=== PATIENT | female | born 1985 | race American Indian/Alaskan Native ===

== ENCOUNTER 2016-12-11 20:50 | Emergency (ER) | payer OTHER ==
[2016-12-11 23:31] LABS: Basophils % (Auto) 1.1 % (0.0-1.8); Mean Corpuscular HGB Conc 29 % (30-34); Mean Corpuscular Volume 72 fl (79-97); Platelet Count 368 K/mm3 (140-440); Red Blood Count 3.99 M/mm3 (3.65-5.03); White Blood Count 14.1 K/mm3 (4.5-11.0)
[2016-12-11 23:42] LABS: Hematocrit 28.7 % (30.3-42.9); Hemoglobin 8.3 gm/dl (10.1-14.3); Mean Corpuscular Hemoglobin 21 pg (28-32); Red Cell Distribution Width 21.4 % (13.2-15.2)
[2016-12-12 00:08] LABS: Alanine Aminotransferase 11 units/L (7-56); Albumin 4.6 g/dL (3.9-5); Albumin/Globulin Ratio 1.3 %; Alkaline Phosphatase 46 units/L (35-129); Anion Gap 19 mmol/L; BUN/Creatinine Ratio 16.66; Bilirubin,Total 1.1 mg/dL (0.1-1.2); Blood Urea Nitrogen 10 mg/dL (7-17); Calcium 9.3 mg/dL (8.4-10.2); Carbon Dioxide 22 mmol/L (22-30); Chloride 98.7 mmol/L (98-107); Glucose 92 mg/dL (65-100); Lipase 41 units/L (13-60); Potassium 4.5 mmol/L (3.6-5.0); Sodium 135 mmol/L (137-145); Total Protein 8.2 g/dL (6.3-8.2)
[2016-12-12 00:37] LABS: Bacteria,Urine 2+ /HPF (Negative); Bilirubin,Urine NEG (Negative); Blood,Urine NEG (Negative); Ketones,Urine NEG (Negative); Leukocyte Esterase,Urine TR (Negative); Mucus,Urine 3+ /HPF; Nitrite,Urine NEG (Negative)
--- NOTE | 2016-12-12 07:45 | Emergency Department Report ---
ED General Adult HPI - General Chief complaint: Abdominal Pain Stated complaint: ABD PAIN Time Seen by Provider: 12/12/16 07:34 Source: patient, RN notes reviewed, old records reviewed Mode of arrival: Ambulatory Limitations: No Limitations - History of Present Illness Initial comments: This is a 31-year-old female. She is previously unknown to me. Has a past medical history of symptomatic anemia. The patient presents to the ER complaining of lightheadedness, dizziness, sensation that her blood counts are low. She also thinks that she has a urinary tract infection. She describes increased frequency, and and a smell to her urine. There is no dysuria or hematuria. Patient is sexually active with one male partner, denies a history of gonorrhea/chlamydia. She currently has no pain at this time. no describe exacerbating or relieving factors. Symptoms have been present for approximately one month. -: Gradual Consistency: intermittent Improves with: none Worsens with: none Associated Symptoms: denies: confusion, chest pain, cough, diaphoresis, fever/ chills, headaches, loss of appetite, nausea/vomiting, shortness of breath, syncope, weakness - Related Data Previous Rx's Medication Instructions Recorded Last Taken Type Ferrous Sulfate [Feosol 325 MG tab] 325 mg PO BID #60 tablet 01/21/15 Unknown Rx Multivitamin [Multi Vitamin Daily] 1 each PO DAILY #30 tablet 01/21/15 Unknown Rx medroxyPROGESTERone ACETATE 10 mg PO QDAY #8 tablet 01/21/15 Unknown Rx [Provera] predniSONE [Deltasone] 20 mg PO TID #12 tab 09/15/15 Unknown Rx Ferrous Sulfate [Feosol 325 MG tab] 325 mg PO QDAY #30 tablet 12/12/16 Unknown Rx Nitrofurantoin [place]/M-Cryst 100 mg PO Q12HR #14 capsule 12/12/16 Unknown Rx [Macrobid CAP] Allergies Allergy/AdvReac Type Severity Reaction Status Date / Time No Known Allergies Allergy Unverified 01/20/15 01:28 ED Review of Systems ROS: Stated complaint: ABD PAIN Other details as noted in HPI Constitutional: denies: fever Eyes: denies: eye discharge ENT: denies: epistaxis Respiratory: denies: cough Cardiovascular: denies: chest pain Gastrointestinal: denies: nausea Genitourinary: as per HPI, frequency Musculoskeletal: denies: back pain Skin: denies: lesions Neurological: denies: weakness Psychiatric: denies: anxiety ED Past Medical Hx - Past Medical History Previous Medical History?: No Hx Hypertension: No Hx Heart Attack/AMI: No Hx Congestive Heart Failure: No Hx Diabetes: No Hx Deep Vein Thrombosis: No Hx Pulmonary Embolism: No Hx Liver Disease: No Hx Renal Disease: No Hx Sickle Cell Disease: No Hx Arthritis: No Hx Seizures: No Hx Kidney Stones: No Hx Asthma: No Hx COPD: No Hx Tuberculosis: No Hx Dementia: No Hx HIV: No Additional medical history: Anemia - Surgical History Hx Coronary Stent: No Hx Open Heart Surgery: No Hx Pacemaker: No Hx Internal Defibrillator: No Hx Cholecystectomy: No Hx Appendectomy: No Hx Breast Surgery: No - Social History Smoking Status: Never Smoker Substance Use Type: None - Medications Home Medications: Home Medications Medication Instructions Recorded Confirmed Last Taken Type Ferrous Sulfate [Feosol 325 MG tab] 325 mg PO BID #60 tablet 01/21/15 Unknown Rx Multivitamin [Multi Vitamin Daily] 1 each PO DAILY #30 tablet 01/21/15 Unknown Rx medroxyPROGESTERone ACETATE 10 mg PO QDAY #8 tablet 01/21/15 Unknown Rx [Provera] predniSONE [Deltasone] 20 mg PO TID #12 tab 09/15/15 Unknown Rx Ferrous Sulfate [Feosol 325 MG tab] 325 mg PO QDAY #30 tablet 12/12/16 Unknown Rx Nitrofurantoin [place]/M-Cryst 100 mg PO Q12HR #14 capsule 12/12/16 Unknown Rx [Macrobid CAP] ED Physical Exam - General Limitations: No Limitations General appearance: alert, in no apparent distress - Head Head exam: Present: atraumatic, normocephalic - Eye Eye exam: Present: normal appearance, EOMI. Absent: nystagmus - ENT ENT exam: Present: normal exam, normal orophraynx, mucous membranes moist, TM's normal bilaterally, normal external ear exam - Neck Neck exam: Present: normal inspection, full ROM. Absent: tenderness, meningismus - Respiratory Respiratory exam: Present: normal lung sounds bilaterally. Absent: respiratory distress, wheezes, rales, rhonchi, stridor, chest wall tenderness - Cardiovascular Cardiovascular Exam: Present: regular rate, normal rhythm, normal heart sounds. Absent: bradycardia, tachycardia, irregular rhythm, systolic murmur, diastolic murmur, rubs, gallop - GI/Abdominal GI/Abdominal exam: Present: soft, normal bowel sounds. Absent: distended, tenderness, guarding, rebound, rigid, pulsatile mass - External exam: Present: normal external exam Speculum exam: Present: normal speculum exam Bi-manual exam: Present: normal bi-manual exam, other (gynecologic examination, I am escorted by nurse Key Hernandes). Absent: cervical motion tendernes, adnexal tenderness, adnexal mass, uterine enlargement, uterine tenderness - Extremities Exam Extremities exam: Present: normal inspection, full ROM, normal capillary refill. Absent: tenderness, pedal edema, joint swelling, calf tenderness - Back Exam Back exam: Present: normal inspection, full ROM. Absent: tenderness, CVA tenderness (R), CVA tenderness (L), muscle spasm, paraspinal tenderness, vertebral tenderness - Neurological Exam Neurological exam: Present: alert, oriented X3, normal gait, other (Extraocular movements intact. Tongue midline. No facial droop. Facial sensation intact to light touch in the V1, V2, V3 distribution bilaterally. 5 and 5 strength in 4 extremities.. Sensation is intact to light touch in 4 extremities.). Absent : motor sensory deficit - Psychiatric Psychiatric exam: Present: normal affect, normal mood - Skin Skin exam: Present: warm, dry, intact, normal color. Absent: rash ED Course Vital Signs 12/11/16 12/12/16 12/12/16 21:49 08:45 08:46 Temperature 98 F Pulse Rate 91 H 90 Respiratory 20 16 18 Rate Blood Pressure 113/75 Blood Pressure 114/74 [Left] O2 Sat by Pulse 100 99 100 Oximetry - Reevaluation(s) Reevaluation #1: 12/12/16 08:36 Differential diagnosis: Chronic anemia, urinary tract infection, menstruation, general medical evaluation Assessment and plan: 31-year-old female with multiple complaints. She is afebrile with reassuring vital signs. She has a GCS of 15, NIH score of 0, walks with a steady gait. No pulmonary embolus or DVT risk factors, low risk by well's criteria, perc negative. There is no pass pointing, she has a normal [id number], negative Romberg, no cerebellar signs. Has mild chronic anemia, does not require transfusion at this time. She is able to walk with a steady gait. Has nonspecific urinary symptoms, but urinalysis does not appear to be especially convincing for UTI. We will send cultures. She will be started on iron supplementation. She will be discharged with a prescription for Macrobid, but instructed to not take it unless culture results come back positive, or she develops dysuria, or other irritative urinary symptoms. ED Medical Decision Making - Lab Data Result diagrams: 12/11/16 22:58 12/11/16 22:58 Vital Signs 12/11/16 21:49 Temperature 98 F Pulse Rate 91 H Respiratory 20 Rate Blood Pressure 113/75 O2 Sat by Pulse 100 Oximetry Lab Results 12/11/16 12/11/16 12/12/16 Range/Units 22:58 22:58 00:06 WBC 14.1 H (4.5-11.0) K/mm3 RBC 3.99 (3.65-5.03) M/mm3 Hgb 8.3 L (10.1-14.3) gm/dl Hct 28.7 L (30.3-42.9) % MCV 72 L (79-97) fl MCH 21 L (28-32) pg MCHC 29 L (30-34) % RDW 21.4 H (13.2-15.2) % Plt Count 368 (140-440) K/mm3 Lymph % (Auto) 6.9 L (13.4-35.0) % [place] % (Auto) 4.5 (0.0-7.3) % Eos % (Auto) 0.0 (0.0-4.3) % Baso % (Auto) 1.1 (0.0-1.8) % Lymph # 1.0 L (1.2-5.4) K/mm3 [place] # 0.6 (0.0-0.8) K/mm3 Eos # 0.0 (0.0-0.4) K/mm3 Baso # 0.2 H (0.0-0.1) K/mm3 Seg Neutrophils % 87.5 H (40.0-70.0) % Seg Neutrophils # 12.4 H (1.8-7.7) K/mm3 Sodium 135 L (137-145) mmol/L Potassium 4.5 (3.6-5.0) mmol/L Chloride 98.7 (98-107) mmol/L Carbon Dioxide 22 (22-30) mmol/L Anion Gap 19 mmol/L BUN 10 (7-17) mg/dL Creatinine 0.6 L (0.7-1.2) mg/dL Estimated GFR > 60 ml/min BUN/Creatinine Ratio 16.66 % Glucose 92 (65-100) mg/dL Calcium 9.3 (8.4-10.2) mg/dL Total Bilirubin 1.1 (0.1-1.2) mg/dL AST 16 (5-40) units/L ALT 11 (7-56) units/L Alkaline Phosphatase 46 (35-129) units/L Total Protein 8.2 (6.3-8.2) g/dL Albumin 4.6 (3.9-5) g/dL Albumin/Globulin Ratio 1.3 % Lipase 41 (13-60) units/L Urine Color Yellow (Yellow) Urine Turbidity Slightly-cloudy (Clear) Urine pH 5.0 (5.0-7.0) Ur Specific [place] 1.021 (1.003-1.030) Urine Protein 30 mg/dl (Negative) mg/dL Urine Glucose (UA) Neg (Negative) mg/dL Urine Ketones Neg (Negative) mg/dL Urine Blood Neg (Negative) Urine Nitrite Neg (Negative) Urine Bilirubin Neg (Negative) Urine Urobilinogen 4.0 (<2.0) mg/dL Ur Leukocyte Esterase Tr (Negative) Urine WBC (Auto) 5.0 (0.0-6.0) /HPF Urine RBC (Auto) 4.0 (0.0-6.0) /HPF U Epithel Cells (Auto) 11.0 (0-13.0) /HPF Urine Bacteria (Auto) 2+ (Negative) /HPF Urine Mucus 3+ /HPF Urine HCG, Qual Negative (Negative) - EKG Data -: EKG Interpreted by Ri EKG shows normal: sinus rhythm Rate: normal - EKG Data When compared to previous EKG there are: previous EKG unavailable 12/12/16 08:42 normal sinus, 80 beats per minute, normal intervals, normal axis , unremarkable EKG, not morphologically consistent with STEMI. Critical care attestation.: If time is entered above; I have spent that time in minutes in the direct care of this critically ill patient, excluding procedure time. ED Disposition Clinical Impression: Anemia Disposition: DISCHARGED TO HOME OR SELFCARE Is pt being admited?: No Does the pt Need Aspirin: No Condition: Stable Instructions: Anemia (ED) Additional Instructions: Take the iron sulfate supplementation as directed. This medication may cause constipation, and may also change the color of her bowel movements to black. Cultures were sent today, results will be available in the next 3-5 days. Have a primary care doctor contact the medical records department to obtain culture results. Do not take the Macrobid antibiotic therapy unless he developed painful urination, sensation of incomplete voiding, or you receive a phone call from the laboratory indicating that your urine culture was positive. If he did not receive a phone call within 5 days from the medical records department regarding your urine culture, please call the medical records department to obtain culture results. I have listed numerous names, phone numbers, addresses of local [employer] doctors. I recommend that you follow-up with an [employer] SERVICE CLERK doctor within the next 2-3 weeks. Return to the ER right away with loss of consciousness, chest pain, shortness of breath, intractable nausea or vomiting, inability to tolerate liquid feeds. Prescriptions: Ferrous Sulfate [Feosol 325 MG tab] 325 mg PO QDAY #30 tablet Nitrofurantoin [place]/M-Cryst [Macrobid CAP] 100 mg PO Q12HR #14 capsule Referrals: PRIMARY CARE, [Primary Care Provider] - 3-5 Days FADUMO HERNANDES MD [Staff Physician] - 3-5 Days [facility] [Provider Group] - 3-5 Days [facility] [Provider Group] - 3-5 Days [facility] [Provider Group] - 3-5 Days Forms: Work/School Release Form(ED)
[2016-12-12 08:45] VITALS: BP 114/74
== END 2016-12-12 08:54 | disposition home or self-care (01) ==
LOC: ED 20:50
DX: D64.9 Anemia, unspecified (principal)
CPT/HCPCS: 36415; 80053; 81001; 81025; 83690; 85025; 87086; 87210; 87591; 93005; 93010; 99284

== ENCOUNTER 2017-08-15 17:33 | Outpatient (CLI) | payer OTHER, MEDICAID ==
[2017-08-15 18:03] VITALS: BP 140/52
[2017-08-15] MEDS ORDERED: LACTATED RINGERS 500 ML IV ONE (18:10)
[2017-08-15 19:02] LABS: Bacteria,Urine 1+ /HPF (Negative); Bilirubin,Urine NEG (Negative); Blood,Urine NEG (Negative); Ketones,Urine TR mg/dL (Negative); Leukocyte Esterase,Urine SM (Negative); Mucus,Urine FEW /HPF; Nitrite,Urine NEG (Negative); Protein,Urine <15 mg/dL mg/dL (Negative)
== END 2017-08-15 19:10 | disposition home or self-care (01) ==
LOC: TRG 17:33
PROVIDERS: ATTEND Obstetrics & Gynecology
DX: Z34.93 Encounter for supervision of normal pregnancy, unspecified, third trimester (principal); Z3A.36 36 weeks gestation of pregnancy
CPT/HCPCS: 59025; 81001

== ENCOUNTER 2017-09-17 10:12 | Outpatient (CLI) | payer OTHER, MEDICAID ==
[2017-09-17 11:02] VITALS: BP 134/78
--- NOTE | 2017-09-17 16:02 | Ultrasound Report ---
LIMITED OB ULTRASOUND: Suspect abnormal NST Gestation: [place] Position: Cephalic OTONIEL = 7 cm Heart Rate: 145 BPM Estimated gestational age is 40 weeks 5 days. BIOPHYSICAL PROFILE: 2 - breathing movements 2 - movements 2 - posture and tone 2 - Qualitative amniotic fluid volume 8 - TOTAL SCORE OF POSSIBLE 8 Heart Rate (bpm) 131
== END 2017-09-17 12:15 | disposition home or self-care (01) ==
LOC: TRG 10:12
PROVIDERS: ATTEND Obstetrics & Gynecology
DX: O48.0 Post-term pregnancy (principal); Z3A.40 40 weeks gestation of pregnancy
CPT/HCPCS: 59025; 76815; 76819

== ENCOUNTER 2017-09-20 15:35 | Inpatient (IN) | payer OTHER, MEDICAID ==
[2017-09-20] MEDS ORDERED: LACTATED RINGERS 1,000 ML IV SCH (17:00)
[2017-09-20 17:09] LABS: Basophils % (Auto) 0.6 % (0.0-1.8); Eosinophils % (Auto) 0.8 % (0.0-4.3); Hematocrit 41.5 % (30.3-42.9); Hemoglobin 13.8 gm/dl (10.1-14.3); Mean Corpuscular HGB Conc 33 % (30-34); Mean Corpuscular Hemoglobin 32 pg (28-32); Mean Corpuscular Volume 96 fl (79-97); Platelet Count 102 K/mm3 (140-440); Red Blood Count 4.33 M/mm3 (3.65-5.03); Red Cell Distribution Width 14.9 % (13.2-15.2)
[2017-09-20] MEDS ORDERED: POLYCILLIN/NS 2 GM/100 ML 2 GM/100 ML BAG IV ONE (17:30)
[2017-09-20] MEDS ORDERED: BRETHINE IVP PRN (18:38)
[2017-09-20] MEDS ORDERED: BRETHINE SUB-Q PRN (18:38)
[2017-09-20] MEDS ORDERED: SUBLIMAZE IV PRN (18:38)
[2017-09-20] MEDS ORDERED: MINERAL OIL PO PRN (18:38)
[2017-09-20] MEDS ORDERED: ePHEDrine SULFATE IV PRN (18:38)
[2017-09-20] MEDS ORDERED: XYLOCAINE 2% INFILTRATI ONE (18:38)
--- NOTE | 2017-09-20 18:41 | History and Physical Report ---
History of Present Illness Date of examination: 09/20/17 Date of admission: 09/20/17 15:35 History of present illness: 31 yo 09/12/17 @ 41.1 weeks gestation, presented to office for routine OB visit and received postdate U/S with BPP 6/8 and OTONIEL 2.4cm. Reported LOF since yesterday. Sent for induction. First trimester entry into care at 10 weeks gestation. Positive HSV2 with Valtrex. course complicated by abnl quad with NL APA anatomy screen. Glucose intolerance with NL 3hr GTT. 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 Family/Genetic History: diabetes, hypertension, cancer Social history: no significant social history - Obstetrical History Expected Date of Delivery: 09/12/17 Actual Gestation: 41 Week(s) 1 Day(s) : 1 Para: 0 Medications and Allergies Allergies Allergy/AdvReac Type Severity Reaction Status Date / Time No Known Allergies Allergy Verified 09/17/17 10:30 Home Medications Medication Instructions Recorded Confirmed Last Taken Type Ferrous Sulfate [Feosol 325 MG tab] 325 mg PO BID #60 tablet 01/21/15 09/20/17 Unknown Rx Multivitamin [Multi Vitamin Daily] 1 each PO DAILY #30 tablet 01/21/15 09/20/17 Unknown Rx Docusate Sodium [Colace] 100 mg PO BID PRN 09/20/17 09/20/17 Unknown History Valacyclovir HCl [Valtrex] 500 mg PO DAILY 09/20/17 09/20/17 Unknown History Active Meds: Active Medications Lactated Ringer's (Lactated Ringers) 1,000 mls @ 125 mls/hr IV DIRECT JO ANN Last Admin: 09/20/17 17:31 Dose: 125 mls/hr Ampicillin Sodium (Polycillin/Ns 1 Gm/50 Ml) 1 gm in 50 mls @ 100 mls/hr IV Q4H JO ANN PRN Reason: Protocol Review of Systems All systems: negative - Vital Signs Vital signs: Vital Signs Temp Pulse Resp BP 98.3 F 94 H 18 132/80 09/20/17 16:01 09/20/17 16:01 09/20/17 16:01 09/20/17 16:01 Temp Pulse Resp BP Pulse Ox 98.3 F 82 18 130/78 09/20/17 16:01 09/20/17 18:01 09/20/17 16:01 09/20/17 18:01 - Physical Exam Abdomen: Positive: normal appearance, soft Vulva: both: normal Vagina: Positive: normal moisture Uterus: Positive: normal size, enlarged - Obstetrical FHR: category 1 Uterine Contraction Monitor Mode: External Cervical Dilatation: 0 Cervical Effacement Percentage: 40 station: -3 Uterine Contraction Frequency (min): 0 Uterine Contraction Duration: 0 Uterine Contraction Pattern: Irregular Results Result Diagrams: 09/20/17 16:30 Abnormal lab results 09/20/17 Range/Units 16:30 Plt Count 102 L (140-440) K/mm3 [place] % (Auto) 8.7 H (0.0-7.3) % All other labs normal. Assessment and Plan A: IUP at 41 weeks Oligohydraminos/Prolonged ROM Equivocal BPP Post Dates P: MD consult Pitocin Antibiotics
[2017-09-20] MEDS ORDERED: PITOCin/NS 20 UNIT/1000ML DRIP 20 UNITS/1,000 ML BAG IV SCH (19:00)
[2017-09-20] MEDS ORDERED: PITOCin/NS 30 UNIT/500ML 30 UNITS/500 ML BAG IV SCH (19:00)
[2017-09-20] MEDS: PITOCin/NS 30 UNIT/500ML 30 UNITS/500 ML BAG IV SCH (19:30)
[2017-09-20] MEDS: POLYCILLIN/NS 1 GM/50 ML 1 GM/50 ML BAG IV SCH (23:16)
[2017-09-21] MEDS: POLYCILLIN/NS 1 GM/50 ML 1 GM/50 ML BAG IV SCH ×3 (03:13→12:37)
[2017-09-21] MEDS: LACTATED RINGERS 1,000 ML IV SCH ×2 (04:39→10:29)
--- NOTE | 2017-09-21 09:50 | Progress Note ---
Assessment and Plan A: IUP at 41 weeks Oligohydraminos/Prolonged ROM Equivocal BPP Post Dates P: MD consult Pitocin-Active Steven't Dulcolax for constipation Antibiotics Subjective - Subjective Date of service: 09/21/17 Interval history: 31 yo 09/12/17 @ 41.1 weeks gestation, presented to office for routine OB visit and received postdate U/S with BPP 6/8 and OTONIEL 2.4cm. Reported LOF since yesterday. Sent for induction. First trimester entry into care at 10 weeks gestation. Positive HSV2 with Valtrex. course complicated by abnl quad with NL APA anatomy screen. Glucose intolerance with NL 3hr GTT. Patient reports: new complaints (c/o rectal pressure and need to have BM), movement normal, contractions, no loss of fluid, no vaginal bleeding Objective - Vital Signs Vital Signs: Vital Signs - 12hr 09/20/17 09/20/17 09/20/17 21:52 21:56 21:57 Temperature Pulse Rate 67 81 64 Respiratory Rate Blood Pressure Blood Pressure [Left] O2 Sat by Pulse 98 94 98 Oximetry 09/20/17 09/20/17 09/20/17 22:02 22:07 22:12 Temperature Pulse Rate 66 71 71 Respiratory Rate Blood Pressure 129/77 Blood Pressure [Left] O2 Sat by Pulse 98 97 98 Oximetry 09/20/17 09/20/17 09/20/17 22:17 22:22 22:27 Temperature Pulse Rate 71 71 68 Respiratory Rate Blood Pressure Blood Pressure [Left] O2 Sat by Pulse 98 97 98 Oximetry 09/20/17 09/20/17 09/20/17 22:32 22:37 22:42 Temperature Pulse Rate 69 95 H 75 Respiratory Rate Blood Pressure Blood Pressure [Left] O2 Sat by Pulse 95 96 96 Oximetry 09/20/17 09/20/17 09/20/17 22:47 22:52 22:57 Temperature Pulse Rate 69 67 80 Respiratory Rate Blood Pressure Blood Pressure [Left] O2 Sat by Pulse 97 97 97 Oximetry 09/20/17 09/20/17 09/20/17 23:08 23:13 23:18 Temperature Pulse Rate 82 74 87 Respiratory Rate Blood Pressure Blood Pressure [Left] O2 Sat by Pulse 100 98 97 Oximetry 11/30/17 11/30/17 11/30/17 23:23 23:28 23:33 Temperature Pulse Rate 74 72 71 Respiratory Rate Blood Pressure Blood Pressure [Left] O2 Sat by Pulse 97 97 98 Oximetry 09/20/17 09/20/17 09/20/17 23:38 23:43 23:48 Temperature Pulse Rate 74 84 71 Respiratory Rate Blood Pressure Blood Pressure [Left] O2 Sat by Pulse 98 98 98 Oximetry 09/20/17 09/20/17 09/21/17 23:53 23:58 00:03 Temperature Pulse Rate 78 77 68 Respiratory Rate Blood Pressure Blood Pressure [Left] O2 Sat by Pulse 98 97 97 Oximetry 09/21/17 09/21/17 09/21/17 00:08 00:13 00:18 Temperature Pulse Rate 65 61 65 Respiratory Rate Blood Pressure Blood Pressure [Left] O2 Sat by Pulse 97 97 96 Oximetry 09/21/17 09/21/17 09/21/17 00:23 00:28 00:32 Temperature Pulse Rate 74 64 59 L Respiratory Rate Blood Pressure Blood Pressure [Left] O2 Sat by Pulse 95 96 94 Oximetry 09/21/17 09/21/17 09/21/17 00:33 00:38 00:43 Temperature Pulse Rate 63 63 62 Respiratory Rate Blood Pressure Blood Pressure [Left] O2 Sat by Pulse 97 97 97 Oximetry 09/21/17 09/21/17 09/21/17 00:48 00:53 00:58 Temperature Pulse Rate 62 61 74 Respiratory Rate Blood Pressure Blood Pressure [Left] O2 Sat by Pulse 97 96 97 Oximetry 09/21/17 09/21/17 09/21/17 01:03 01:08 01:13 Temperature Pulse Rate 89 69 72 Respiratory Rate Blood Pressure Blood Pressure [Left] O2 Sat by Pulse 98 95 98 Oximetry 09/21/17 09/21/17 09/21/17 01:18 01:23 01:27 Temperature Pulse Rate 67 70 56 L Respiratory Rate Blood Pressure 125/82 Blood Pressure [Left] O2 Sat by Pulse 96 96 Oximetry 09/21/17 09/21/17 09/21/17 01:28 01:33 01:38 Temperature Pulse Rate 60 67 64 Respiratory Rate Blood Pressure Blood Pressure [Left] O2 Sat by Pulse 97 97 97 Oximetry 09/21/17 09/21/17 09/21/17 01:43 01:48 01:53 Temperature Pulse Rate 65 63 70 Respiratory Rate Blood Pressure Blood Pressure [Left] O2 Sat by Pulse 99 98 97 Oximetry 09/21/17 09/21/17 09/21/17 01:58 02:10 02:14 Temperature 97.5 F L Pulse Rate 69 70 63 Respiratory 13 Rate Blood Pressure 131/77 Blood Pressure 131/77 [Left] O2 Sat by Pulse 97 95 90 Oximetry 09/21/17 09/21/17 09/21/17 02:15 02:20 02:23 Temperature Pulse Rate 68 64 66 Respiratory Rate Blood Pressure Blood Pressure [Left] O2 Sat by Pulse 96 95 94 Oximetry 09/21/17 09/21/17 09/21/17 02:25 02:30 02:33 Temperature Pulse Rate 60 60 74 Respiratory Rate Blood Pressure Blood Pressure [Left] O2 Sat by Pulse 96 96 94 Oximetry 09/21/17 09/21/17 09/21/17 02:35 02:40 02:45 Temperature Pulse Rate 66 65 57 L Respiratory Rate Blood Pressure Blood Pressure [Left] O2 Sat by Pulse 96 96 97 Oximetry 09/21/17 09/21/17 09/21/17 02:50 02:55 03:00 Temperature Pulse Rate 60 61 65 Respiratory Rate Blood Pressure Blood Pressure [Left] O2 Sat by Pulse 97 96 96 Oximetry 09/21/17 09/21/17 09/21/17 03:05 03:07 03:10 Temperature Pulse Rate 60 74 65 Respiratory Rate Blood Pressure Blood Pressure [Left] O2 Sat by Pulse 96 94 96 Oximetry 09/21/17 09/21/17 09/21/17 03:15 03:20 03:22 Temperature Pulse Rate 62 58 L 69 Respiratory Rate Blood Pressure Blood Pressure [Left] O2 Sat by Pulse 96 96 94 Oximetry 09/21/17 09/21/17 09/21/17 03:25 03:26 03:30 Temperature Pulse Rate 66 69 60 Respiratory Rate Blood Pressure 124/73 Blood Pressure [Left] O2 Sat by Pulse 94 97 Oximetry 09/21/17 09/21/17 09/21/17 03:35 03:36 03:40 Temperature Pulse Rate 62 61 60 Respiratory Rate Blood Pressure Blood Pressure [Left] O2 Sat by Pulse 96 94 97 Oximetry 09/21/17 09/21/17 09/21/17 03:45 03:50 03:55 Temperature Pulse Rate 63 59 L 66 Respiratory Rate Blood Pressure Blood Pressure [Left] O2 Sat by Pulse 97 97 96 Oximetry 09/21/17 09/21/17 09/21/17 04:00 04:03 04:05 Temperature Pulse Rate 58 L 87 68 Respiratory Rate Blood Pressure Blood Pressure [Left] O2 Sat by Pulse 96 94 96 Oximetry 09/21/17 09/21/17 09/21/17 04:10 04:15 04:20 Temperature Pulse Rate 60 60 58 L Respiratory Rate Blood Pressure Blood Pressure [Left] O2 Sat by Pulse 97 95 97 Oximetry 09/21/17 09/21/17 09/21/17 04:25 04:34 04:39 Temperature Pulse Rate 56 L 63 Respiratory Rate Blood Pressure Blood Pressure [Left] O2 Sat by Pulse 96 95 98 Oximetry 09/21/17 09/21/17 09/21/17 04:42 04:44 04:49 Temperature 97.6 F Pulse Rate 70 56 L Respiratory Rate Blood Pressure Blood Pressure [Left] O2 Sat by Pulse 97 97 Oximetry 09/21/17 09/21/17 09/21/17 04:54 04:59 05:04 Temperature Pulse Rate 60 57 L 68 Respiratory Rate Blood Pressure Blood Pressure [Left] O2 Sat by Pulse 97 97 97 Oximetry 09/21/17 09/21/17 09/21/17 05:09 05:12 05:14 Temperature Pulse Rate 66 58 L 68 Respiratory Rate Blood Pressure Blood Pressure [Left] O2 Sat by Pulse 97 94 98 Oximetry 09/21/17 09/21/17 09/21/17 05:19 05:22 05:24 Temperature Pulse Rate 60 57 L 60 Respiratory Rate Blood Pressure Blood Pressure [Left] O2 Sat by Pulse 97 94 96 Oximetry 09/21/17 09/21/17 09/21/17 05:26 05:29 05:34 Temperature Pulse Rate 54 L 57 L 57 L Respiratory Rate Blood Pressure 117/58 Blood Pressure [Left] O2 Sat by Pulse 96 97 Oximetry 09/21/17 09/21/17 09/21/17 05:39 05:44 05:49 Temperature Pulse Rate 57 L 60 59 L Respiratory Rate Blood Pressure Blood Pressure [Left] O2 Sat by Pulse 97 97 97 Oximetry 09/21/17 09/21/17 09/21/17 05:54 05:59 06:04 Temperature Pulse Rate 60 59 L 63 Respiratory Rate Blood Pressure Blood Pressure [Left] O2 Sat by Pulse 97 98 97 Oximetry 09/21/17 09/21/17 09/21/17 06:09 06:14 06:23 Temperature Pulse Rate 61 68 70 Respiratory Rate Blood Pressure Blood Pressure [Left] O2 Sat by Pulse 98 97 98 Oximetry 09/21/17 09/21/17 09/21/17 06:28 06:31 06:33 Temperature Pulse Rate 68 61 63 Respiratory Rate Blood Pressure Blood Pressure [Left] O2 Sat by Pulse 95 94 95 Oximetry 09/21/17 09/21/17 09/21/17 06:37 06:38 06:43 Temperature Pulse Rate 68 61 62 Respiratory Rate Blood Pressure Blood Pressure [Left] O2 Sat by Pulse 94 96 95 Oximetry 09/21/17 09/21/17 09/21/17 06:44 06:48 06:53 Temperature Pulse Rate 63 61 62 Respiratory Rate Blood Pressure Blood Pressure [Left] O2 Sat by Pulse 94 95 98 Oximetry 09/21/17 09/21/17 09/21/17 06:58 07:03 07:08 Temperature Pulse Rate 74 59 L 62 Respiratory Rate Blood Pressure Blood Pressure [Left] O2 Sat by Pulse 96 98 97 Oximetry 09/21/17 09/21/17 09/21/17 07:13 07:45 07:55 Temperature 98.1 F Pulse Rate 67 69 Respiratory 16 Rate Blood Pressure 106/66 Blood Pressure [Left] O2 Sat by Pulse 98 Oximetry - Exam Breasts: deferred Abdomen: Present: normal appearance, soft Vulva: both: normal Uterus: Present: normal FHR: category 1 Uterine Contraction Monitor Mode: External Cervical Dilatation: 0.5 Cervical Effacement Percentage: 80 station: -1 Uterine Contraction Frequency (min): 2 Uterine Contraction Pattern: Regular Uterine Tone Measurement Phase: Resting Uterine Contraction Intensity: Mild - Labs Labs: Abnormal Labs 09/20/17 16:30 Plt Count 102 L [place] % (Auto) 8.7 H Laboratory Results - last 24 hr 09/20/17 09/20/17 16:30 16:30 WBC 6.0 RBC 4.33 Hgb 13.8 Hct 41.5 MCV 96 MCH 32 MCHC 33 RDW 14.9 Plt Count 102 L Lymph % (Auto) 25.7 [place] % (Auto) 8.7 H Eos % (Auto) 0.8 Baso % (Auto) 0.6 Lymph # 1.5 [place] # 0.5 Eos # 0.0 Baso # 0.0 Seg Neutrophils % 64.2 Seg Neutrophils # 3.8 Blood Type A POSITIVE Antibody Screen Negative
[2017-09-21] MEDS ORDERED: DULCOLAX PR NR (10:00)
[2017-09-21] MEDS: STADOL IV PRN ×2 (10:27→12:41)
[2017-09-21] MEDS: PITOCin/NS 30 UNIT/500ML 30 UNITS/500 ML BAG IV SCH ×3 (12:04→15:18)
[2017-09-21] MEDS ORDERED: fentaNYL-BUPIV 2 MCG/ML-0.125% 200 MCG/100 ML BAG EPIDURAL ONE (13:35)
--- NOTE | 2017-09-21 14:01 | Anesthesia Consultation ---
Anesthesia Consult and Med Hx Date of service: 09/21/17 - Airway Anesthetic Teeth Evaluation: Good ROM Head & Neck: Adequate Mental/Hyoid Distance: Adequate Mallampati Class: Class II Intubation Access Assessment: Probably Good - Pre-Operative Health Status ASA Pre-Surgery Classification: ASA2 Proposed Anesthetic Plan: Epidural, Spinal - Pulmonary Hx Smoking: No Hx Asthma: No COPD: No Hx Pneumonia: No Hx Sleep Apnea: No - Cardiovascular System Hx Hypertension: No Hx Coronary Artery Disease: No Hx Heart Attack/AMI: No Hx Angina: No Hx Percutaneous Transluminal Coronary Angioplasty (PTCA): No Hx Pacemaker: No Hx Internal Defibrillator: No Hx Valvular Heart Disease: No Hx Heart Murmur: No Hx Peripheral Vascular Disease: No - Central Nervous System Hx Seizures: No CVA: No Hx Psychiatric Problems: No - Gastrointestinal Hx Ulcer: No - Endocrine Hx Renal Disease: No Hx End Stage Renal Disease: No Hx Cirrhosis: No Hx Liver Disease: No Hx Hypothyroidism: No Hx Hyperthyroidism: No - Hematic Hx Anemia: Yes (taking iron daily) Hx Sickle Cell Disease: No - Other Systems Hx Alcohol Use: No Hx Cancer: No
[2017-09-21] MEDS ORDERED: NARCAN 2 MG/2 ML IV PRN (14:02)
[2017-09-21] MEDS ORDERED: ePHEDrine SULFATE IV PRN (14:02)
[2017-09-21] MEDS ORDERED: XYLOCAINE MPF 2% ONE (14:15)
[2017-09-21] MEDS ORDERED: fentaNYL-BUPIV 2 MCG/ML-0.125% 200 MCG/100 ML BAG EPIDURAL SCH (15:00)
[2017-09-21] MEDS ORDERED: CYTOTEC PR ONE (17:23)
[2017-09-21] MEDS ORDERED: CYTOTEC ONE (17:24)
[2017-09-21] MEDS ORDERED: DULCOLAX PR PRN (18:17)
[2017-09-21] MEDS ORDERED: TORADOL IV PRN (18:17)
[2017-09-21] MEDS ORDERED: PHENERGAN PR PRN (18:17)
[2017-09-21] MEDS ORDERED: ZOFRAN IV PRN (18:17)
[2017-09-21] MEDS ORDERED: PHENERGAN PO PRN (18:17)
[2017-09-21] MEDS ORDERED: BENADRYL PO PRN (18:17)
[2017-09-21] MEDS ORDERED: TYLENOL PO PRN (18:17)
[2017-09-21] MEDS ORDERED: NORCO 5/325 PO PRN (18:17)
[2017-09-21] MEDS ORDERED: TUCKS PAD TP PRN (18:17)
--- NOTE | 2017-09-21 18:27 | Procedure Note ---
OB Delivery Note - Delivery Date of Delivery: 09/21/17 Surgeon: RADHA HERNANDES Estimated blood loss: other (700cc) - Vaginal Delivery presentation: vertex Delivery position: OA Intrapartum events: meconium Delivery induction: oxytocin Delivery monitor: external FHT, external uterine Route of delivery: Delivery placenta: spontaneous Delivery cord: 3 umbilical vessels Episiotomy: none Delivery laceration: 2nd degree Delivery repair: vicryl Anesthesia: epidural Delivery comments: Patient was noted to be c/c/e and commenced to pushing and delivered a viable male infant in OA presentation at 1747. The shoulders delivered easily and placed on baby chest. Nasopharynx and orophayrnx suctione. The cord was clamped and cut. The placenta delivered spontaneously intact with three vessel cord at 1750. The weight of male viable infant was 8 pounds 9 oz. Aurvery of perineum revealed a 2nd degree repaired with 2-0 vicryl in normal usual fashion. Excellent hemostasis noted. EBL 700 cc. Pitocin and double pit used to control bleeding. Mother tolerated procedure well and bonding with the baby - A at 1 minute: 8 at 5 minutes: 9 Infant Gender: Male
[2017-09-21] MEDS ORDERED: PITOCin/NS 20 UNIT/1000ML DRIP 20 UNITS/1,000 ML BAG IV SCH (19:00)
[2017-09-21] MEDS ORDERED: SODIUM CHLORIDE FLUSH SYRINGE 10 ML IV NR (19:00)
[2017-09-21] MEDS: MOTRIN PO SCH (20:24)
[2017-09-21] MEDS ORDERED: COLACE PO SCH (22:00)
[2017-09-21] MEDS ORDERED: MILK OF MAGNESIA PO PRN (22:00)
[2017-09-21] MEDS: PERCOCET 5/325 PO PRN (22:37)
[2017-09-22] MEDS: MOTRIN PO SCH ×3 (05:15→18:00)
[2017-09-22 06:05] LABS: Hematocrit 32.9 % (30.3-42.9); Hemoglobin 11.2 gm/dl (10.1-14.3)
[2017-09-22] MEDS: PERCOCET 5/325 PO PRN ×3 (06:32→18:02)
--- NOTE | 2017-09-22 08:13 | Progress Note ---
Assessment and Plan A/P PPD#1 s/p h/h 13.8/41.5--11.2/32.9 bonding with baby breast feeding ambulating and tolerating diet bleeding decreased\ unsure control d/c home tomorrow if continued stable to f/u in 2 weeks to assess repair Subjective - Subjective Date of service: 09/22/17 Principal diagnosis: Patient reports: appetite normal, voiding normally, pain well controlled, flatus , ambulating normally [place]: doing well, nursing well Objective - Vital Signs Latest vital signs: Vital Signs Temp Pulse Resp BP BP Pulse Ox 09/22/17 03:30 98.3 F 82 18 111/62 09/22/17 02:05 98.6 F 73 18 110/63 97 09/21/17 20:38 98.3 F 77 18 128/71 09/21/17 19:23 88 129/63 09/21/17 18:38 84 124/74 09/21/17 18:23 82 116/63 09/21/17 18:08 86 132/73 09/21/17 14:13 62 122/71 09/21/17 13:38 78 92 09/21/17 13:36 77 97 09/21/17 13:31 89 97 09/21/17 13:26 79 94 09/21/17 13:21 83 95 09/21/17 13:18 76 94 09/21/17 13:16 69 95 09/21/17 13:11 70 94 09/21/17 13:10 70 93 09/21/17 13:06 65 96 09/21/17 13:05 71 94 09/21/17 13:01 64 93 09/21/17 12:56 71 94 09/21/17 12:51 63 93 09/21/17 12:50 68 94 09/21/17 12:46 71 96 09/21/17 12:41 62 96 09/21/17 12:36 63 96 09/21/17 12:31 81 95 09/21/17 12:26 83 95 09/21/17 12:21 73 98 09/21/17 12:07 67 98 09/21/17 12:04 74 94 09/21/17 12:02 61 96 09/21/17 11:36 64 133/86 09/21/17 11:23 98.1 F 16 12/01/17 10:57 16 09/21/17 10:33 63 132/81 09/21/17 10:27 16 Intake and Output 09/21/17 09/22/17 09/22/17 23:59 07:59 15:59 Intake Total 240 120 Output Total 800 Balance -560 120 Intake: Oral 240 Intake, Free Water 120 Output: Urine 800 Void 800 Other: Total, Intake Amount 240 Total, Output Amount 800 # Voids Void 1 Estimated Blood Loss 700 - Exam Breasts: Present: normal Cardiovascular: Present: Regular rate, Normal S1 Lungs: Present: Clear to auscultation, Normal air movement Abdomen: Present: normal appearance, soft, normal bowel sounds. Absent: distention, tenderness Vulva: both: normal Uterus: Present: normal, firm, fundal height below umbilicus. Absent: bogginess , tenderness Extremities: Present: normal Deep Tendon Reflex Grade: Normal +2
--- NOTE | 2017-09-22 08:16 | Discharge Summary ---
Providers - Providers Date of Admission: 09/20/17 15:35 Date of discharge: 09/23/17 Attending physician: STANFORD RANGEL Primary care physician: STANFORD RANGEL Hospitalization Reason for admission: induction of labor Delivery: Episiotomy: none Laceration: 2nd degree Incision: normal, dry, intact Other procedures: none complications: none Discharge diagnosis: IUP at term delivered [place] baby: male Condition at discharge: Good Disposition: DC-01 TO HOME OR SELFCARE Plan - Discharge Medications Prescriptions: Ferrous Sulfate [Feosol 325 MG tab] 325 mg PO BID #60 tablet HYDROcodone/APAP 5-325 [[place] 5/325] 1 each PO Q6HR PRN #30 tablet PRN Reason: Pain Ibuprofen [Motrin] 600 mg PO Q8H PRN #30 tablet PRN Reason: Pain - Provider Discharge Summary Activity: routine, no sex for 6 weeks, no strenuous exercise Diet: routine Instructions: routine Additional instructions: [] Smoking cessation referral if applicable(refer to patient education folder for contact #) [] Refer to [facility]'s [facility] Booklet Call your doctor immediately for: * Fever > 100.5 * Heavy vaginal bleeding ( >1 pad per hour) * Severe persistent headache * Shortness of breath * Reddened, hot, painful area to leg or breast * Drainage or odor from incision. * Keep incision clean and dry at all times and follow doctor's instructions regarding bathing/showering - Follow up plan Follow up: STANFORD RANGEL MD [Primary Care Provider] - 14 Days
[2017-09-22] MEDS ORDERED: MILK OF MAGNESIA PO PRN (08:31)
[2017-09-22] MEDS ORDERED: PRENATAL VITAMIN PO SCH (10:00)
[2017-09-22] MEDS ORDERED: BOOSTRIX IM ONE (12:00)
[2017-09-22] MEDS ORDERED: M-M-R II VACCINE SUB-Q ONE (12:00)
[2017-09-23] MEDS: PERCOCET 5/325 PO PRN (01:08)
[2017-09-23] MEDS: MOTRIN PO SCH ×2 (01:10→09:22)
[2017-09-23 05:08] VITALS: BP 119/73
== END 2017-09-23 10:23 | disposition home or self-care (01) | DRG 775 ==
LOC: LD 15:35 → OB 09-21 20:05
PROVIDERS: ADMIT Obstetrics & Gynecology; ATTEND Obstetrics & Gynecology
PROC: 10E0XZZ Delivery of Products of Conception, External Approach (ICD-10-PCS; principal; 2017-09-21)
PROC: 3E0R3BZ Introduction of Anesthetic Agent into Spinal Canal, Percutaneous Approach (ICD-10-PCS; 2017-09-21)
PROC: 00HU33Z Insertion of Infusion Device into Spinal Canal, Percutaneous Approach (ICD-10-PCS; 2017-09-21)
PROC: 3E033VJ Introduction of Other Hormone into Peripheral Vein, Percutaneous Approach (ICD-10-PCS; 2017-09-21)
PROC: 0KQM0ZZ Repair Perineum Muscle, Open Approach (ICD-10-PCS; 2017-09-21)
DX: O48.0 Post-term pregnancy (principal); O41.03X0 Oligohydramnios, third trimester, not applicable or unspecified; Z3A.41 41 weeks gestation of pregnancy; Z37.0 Single live birth; O77.0 Labor and delivery complicated by meconium in amniotic fluid; O70.1 Second degree perineal laceration during delivery
CPT/HCPCS: 36415; 85014; 85018; 85025; 86592; 86850; 86900; 86901; 88307; 99211; G0463; J0290; J0595; J2590; J7120

== ENCOUNTER 2018-06-10 10:59 | Emergency (ER) | payer MEDICAID, OTHER ==
[2018-06-10] MEDS ORDERED: REGLAN IV ONE (13:02)
[2018-06-10] MEDS ORDERED: NACL 0.9% 1000 ML 1,000 ML IV ONE (13:02)
--- NOTE | 2018-06-10 13:42 | Emergency Department Report ---
ED HPI - General Chief complaint: Abdominal Pain Stated complaint: 10WKS /STOMACH PAIN Time Seen by Provider: 06/10/18 12:53 Source: patient Mode of arrival: Ambulatory Limitations: No Limitations - History of Present Illness Initial comments: This is a 32-year-old female nontoxic, well nourished in appearance, no acute signs of distress presents to the ED with c/o of pelvic pain and nausea/ vomiting. Patient denies any vaginal bleeding. Patient stated she is about 10 weeks . Patient denies following up with a OBGYN. Patient denies any radiation of pain. Patient described pain as cramping sensations. Patient denies any upper abdominal pain. Patient denies any vaginal discharge or foul odor. Patient denies any chest pain, shortness of breathe, fever, chills, headache, stiff neck, numbness, tingling. Patient denies any urinary symptoms. Patient denies any allergies or PMH. Patient denies any allergies or PMH. MD Complaint: abdominal pain -: week(s) (1) Location: pelvis Radiation: none Severity: mild Severity scale (0 -10): 8 Quality: cramping Consistency: intermittent Improves with: none Worsens with: none Associated symptoms: nausea/vomiting. denies: vaginal bleeding, vaginal discharge, abdominal pain, dysuria, headache, vision changes, malaise, dysparuenia, rash, seizure, shortness of breath, syncope, weakness Vaginal bleeding: none :: Yes Number of weeks : 10 Pre-jossy care: none - Related Data Home Medications Medication Instructions Recorded Confirmed Last Taken Docusate Sodium [Colace] 100 mg PO BID PRN 09/20/17 09/20/17 Unknown Valacyclovir HCl [Valtrex] 500 mg PO DAILY 09/20/17 09/20/17 Unknown Previous Rx's Medication Instructions Recorded Last Taken Type Ferrous Sulfate [Feosol 325 MG tab] 325 mg PO BID #60 tablet 01/21/15 Unknown Rx Multivitamin [Multi Vitamin Daily] 1 each PO DAILY #30 tablet 01/21/15 Unknown Rx HYDROcodone/APAP 5-325 [[place] 1 each PO Q6HR PRN #30 tablet 09/21/17 Unknown Rx 5/325] Ibuprofen [Motrin] 600 mg PO Q8H PRN #30 tablet 09/21/17 Unknown Rx Ferrous Sulfate [Feosol 325 MG tab] 325 mg PO BID #60 tablet 09/22/17 Unknown Rx Acetaminophen 500 mg PO Q8H PRN #30 tablet 06/10/18 Unknown Rx Metoclopramide [Reglan] 10 mg PO TID PRN #60 tab 06/10/18 Unknown Rx 21/Iron Fu/Folic Acid 1 each PO DAILY #30 tablet 06/10/18 Unknown Rx [ Complete Caplet] Allergies Allergy/AdvReac Type Severity Reaction Status Date / Time No Known Allergies Allergy Verified 09/17/17 10:30 ED Review of Systems ROS: Stated complaint: 10WKS /STOMACH PAIN Other details as noted in HPI Constitutional: denies: chills, fever Eyes: denies: eye pain, eye discharge, vision change ENT: denies: ear pain, throat pain Respiratory: denies: cough, shortness of breath, wheezing Cardiovascular: denies: chest pain, palpitations Endocrine: no symptoms reported Gastrointestinal: abdominal pain (pelvic), nausea, vomiting. denies: diarrhea, constipation Genitourinary: denies: urgency, dysuria, discharge Musculoskeletal: denies: back pain, joint swelling, arthralgia Skin: denies: rash, lesions Neurological: denies: headache, weakness, paresthesias Psychiatric: denies: anxiety, depression Hematological/Lymphatic: denies: easy bleeding, easy bruising ED Past Medical Hx - Past Medical History Hx Hypertension: No Hx Heart Attack/AMI: No Hx Congestive Heart Failure: No Hx Diabetes: No Hx Deep Vein Thrombosis: No Hx Pulmonary Embolism: No Hx Liver Disease: No Hx Renal Disease: No Hx Sickle Cell Disease: No Hx Arthritis: No Hx Seizures: No Hx Kidney Stones: No Hx Asthma: No Hx COPD: No Hx Tuberculosis: No Hx Dementia: No Hx HIV: No Additional medical history: Anemia - Surgical History Hx Coronary Stent: No Hx Open Heart Surgery: No Hx Pacemaker: No Hx Internal Defibrillator: No Hx Cholecystectomy: No Hx Appendectomy: No Hx Breast Surgery: No - Social History Smoking Status: Never Smoker - Medications Home Medications: Home Medications Medication Instructions Recorded Confirmed Last Taken Type Ferrous Sulfate [Feosol 325 MG tab] 325 mg PO BID #60 tablet 01/21/15 09/20/17 Unknown Rx Multivitamin [Multi Vitamin Daily] 1 each PO DAILY #30 tablet 04/02/15 11/30/17 Unknown Rx Docusate Sodium [Colace] 100 mg PO BID PRN 09/20/17 09/20/17 Unknown History Valacyclovir HCl [Valtrex] 500 mg PO DAILY 09/20/17 09/20/17 Unknown History HYDROcodone/APAP 5-325 [[place] 1 each PO Q6HR PRN #30 tablet 09/21/17 Unknown Rx 5/325] Ibuprofen [Motrin] 600 mg PO Q8H PRN #30 tablet 09/21/17 Unknown Rx Ferrous Sulfate [Feosol 325 MG tab] 325 mg PO BID #60 tablet 09/22/17 Unknown Rx Acetaminophen 500 mg PO Q8H PRN #30 tablet 06/10/18 Unknown Rx Metoclopramide [Reglan] 10 mg PO TID PRN #60 tab 06/10/18 Unknown Rx 21/Iron Fu/Folic Acid 1 each PO DAILY #30 tablet 06/10/18 Unknown Rx [ Complete Caplet] ED Physical Exam - General Limitations: No Limitations General appearance: alert, in no apparent distress - Head Head exam: Present: atraumatic, normocephalic - Eye Eye exam: Present: normal appearance Pupils: Present: normal accommodation - ENT ENT exam: Present: normal exam, mucous membranes moist - Neck Neck exam: Present: normal inspection, full ROM. Absent: tenderness, meningismus, lymphadenopathy - Respiratory Respiratory exam: Present: normal lung sounds bilaterally. Absent: respiratory distress, wheezes, rales, rhonchi, stridor, chest wall tenderness, accessory muscle use, decreased breath sounds, prolonged expiratory - Cardiovascular Cardiovascular Exam: Present: regular rate, normal rhythm, normal heart sounds. Absent: irregular rhythm, systolic murmur, diastolic murmur, rubs, gallop - GI/Abdominal GI/Abdominal exam: Present: soft, tenderness (diffuse pelvic area), normal bowel sounds. Absent: distended, guarding, rebound, rigid, diminished bowel sounds - Expanded GI/Abdominal Exam Expanded GI/Abdominal exam: Absent: psoas sign, obturator sign, heel tap sign, Peña's sign, Rovsing's sign, tenderness at [place]bur[place]'s Point, ascites - Rectal Rectal exam: Present: deferred - Extremities Exam Extremities exam: Present: normal inspection, full ROM, normal capillary refill. Absent: tenderness - Back Exam Back exam: Present: normal inspection, full ROM - Neurological Exam Neurological exam: Present: alert, oriented X3, normal gait - Psychiatric Psychiatric exam: Present: normal affect, normal mood - Skin Skin exam: Present: warm, dry, intact, normal color. Absent: rash ED Course Vital Signs 06/10/18 06/10/18 11:03 14:10 Temperature 98.2 F Pulse Rate 91 H Respiratory 18 18 Rate Blood Pressure 152/88 O2 Sat by Pulse 99 Oximetry - Reevaluation(s) Reevaluation #1: 06/10/18 13:43 Patient is speaking in full sentences with no signs of distress noted. ED Medical Decision Making - Lab Data Result diagrams: 06/10/18 13:11 06/10/18 13:11 - Medical Decision Making This is a 32-year-old female that presents with nausea and vomiting, cramping, and UTI. Patient is stable and was examined by me. There is no abdominal tenderness. Negative signs of symptoms of appendicitis. Labs obtained. UA obtained. US OB obtained and dictated by the radiologist with normal single IUP. Quantative serum test obtained. Patient notified of the US report with no questions noted by the patient. Vital signs are stable prior to discharge. Patient received Zofran and 1L Normal saline in the ED which patient stated symptoms has resovled and subsided. A by mouth challenge has been obtained and patient tolerated well with no nausea vomiting. Patient was notified of strict precautions of appendicitis symptoms and to return to the ED if symptoms occurs as soon as possible. Patient was also instructed to Follow- up with a primary care doctor in 3-5 days or if symptoms worsen and continue return to emergency room as soon as possible. At time of discharge, the patient does not seem toxic or ill in appearance. No acute signs of distress noted. Patient agrees to discharge treatment plan of care. No further questions noted by the patient. Critical care attestation.: If time is entered above; I have spent that time in minutes in the direct care of this critically ill patient, excluding procedure time. ED Disposition Clinical Impression: Hyperemesis gravidarum, Pelvic pain during UTI (urinary tract infection) Qualifiers: Urinary tract infection type: site unspecified Hematuria presence: with hematuria Qualified Code(s): N39.0 - Urinary tract infection, site not specified ; R31.9 - Hematuria, unspecified Disposition: - TO HOME OR SELFCARE Is pt being admited?: No Does the pt Need Aspirin: No Condition: Stable Instructions: (ED), Urinary Tract Infection in Women (ED) Additional Instructions: Follow-up with a ACTUARIAL CLERK doctor in 3-5 days or if symptoms worsen and continue return to emergency room as soon as possible. Prescriptions: Acetaminophen 500 mg PO Q8H PRN #30 tablet PRN Reason: Pain, Moderate (4-6) Metoclopramide [Reglan] 10 mg PO TID PRN #60 tab PRN Reason: nausea 21/Iron Fu/Folic Acid [ Complete Caplet] 1 each PO DAILY #30 tablet Referrals: PRIMARY CAREMD [Primary Care Provider] - 3-5 Days FADUMO HERNANDES MD [Staff Physician] - 3-5 Days [facility] [Provider Group] - 3-5 Days Forms: Work/School Release Form(ED)
[2018-06-10 13:58] LABS: BUN/Creatinine Ratio 13; Blood Urea Nitrogen 5 mg/dL (7-17); Calcium 9.3 mg/dL (8.4-10.2); Hemolysis Index 4
[2018-06-10 14:13] LABS: Basophils % (Auto) 0.9 % (0.0-1.8); Eosinophils % (Auto) 0.7 % (0.0-4.3); Hematocrit 41.1 % (30.3-42.9); Hemoglobin 13.5 gm/dl (10.1-14.3); Lymphocytes # (Auto) 1.5 K/mm3 (1.2-5.4); Lymphocytes % (Auto) 29.6 % (13.4-35.0); Mean Corpuscular HGB Conc 33 % (30-34); Mean Corpuscular Hemoglobin 29 pg (28-32); Mean Corpuscular Volume 89 fl (79-97); Monocytes # (Auto) 0.4 K/mm3 (0.0-0.8); Monocytes % (Auto) 7.6 % (0.0-7.3); Platelet Count 150 K/mm3 (140-440); Red Blood Count 4.62 M/mm3 (3.65-5.03); Red Cell Distribution Width 15.9 % (13.2-15.2)
[2018-06-10 14:46] LABS: Bacteria,Urine 2+ /HPF (Negative); Mucus,Urine 3+ /HPF
[2018-06-10 14:57] LABS: Color,Urine Yellow (Yellow)
[2018-06-10 14:59] LABS: Bilirubin,Urine Negative (Negative); Blood,Urine Negative (Negative)
--- NOTE | 2018-06-10 15:50 | Ultrasound Report ---
ULTRASOUND OB LESS THAN 14 WEEKS FETUS HISTORY: Abdominal pain during , beta hCG level is 61,550. COMPARISON: None. TECHNIQUE: Transabdominal and transvaginal ultrasound with color doppler interrogation. FINDINGS: Uterus: The uterus measures 9.8 x 15.6 x 10.2 cm. The cervix is obscured. Endometrium: An intrauterine is identified with heart rate measuring 163 beats per minute. Estimated age on ultrasound is 10 weeks 5 days. Estimated due date 01/01/19. A small subchorionic hemorrhage is identified along the right lateral border of the gestational sac. Right ovary: Normal. Left ovary: Normal. No pelvic fluid or mass is identified. Normal color doppler interrogation. IMPRESSION: Viable, single intrauterine as described. Small subchorionic hemorrhage.
[2018-06-10 16:44] VITALS: BP 121/69
== END 2018-06-10 16:46 | disposition home or self-care (01) ==
LOC: ED 10:59
DX: O21.0 Mild hyperemesis gravidarum (principal); O23.41 Unspecified infection of urinary tract in pregnancy, first trimester; Z3A.10 10 weeks gestation of pregnancy
CPT/HCPCS: 36415; 76801; 80048; 81001; 84702; 85025; 96361; 96374; 99284; J2765; J7030

== ENCOUNTER 2019-01-03 14:17 | Inpatient (IN) | payer MEDICAID ==
[2019-01-03 16:17] LABS: Basophils # (Auto) 0.1 K/mm3 (0.0-0.1); Basophils % (Auto) 1.1 % (0.0-1.8); Eosinophils # (Auto) 0.1 K/mm3 (0.0-0.4); Eosinophils % (Auto) 0.8 % (0.0-4.3); Lymphocytes # (Auto) 1.6 K/mm3 (1.2-5.4); Lymphocytes % (Auto) 21.8 % (13.4-35.0); Mean Corpuscular HGB Conc 34 % (30-34); Mean Corpuscular Volume 89 fl (79-97); Monocytes # (Auto) 0.7 K/mm3 (0.0-0.8); Monocytes % (Auto) 9.8 % (0.0-7.3); Red Blood Count 4.26 M/mm3 (3.65-5.03); Red Cell Distribution Width 15.7 % (13.2-15.2)
[2019-01-03] MEDS ORDERED: LACTATED RINGERS 1,000 ML ONE (17:01)
[2019-01-03] MEDS ORDERED: MINERAL OIL PO PRN (17:22)
[2019-01-03] MEDS ORDERED: SUBLIMAZE IV PRN (17:22)
[2019-01-03] MEDS ORDERED: STADOL IV PRN (17:22)
[2019-01-03] MEDS ORDERED: BRETHINE IVP PRN (17:22)
[2019-01-03] MEDS ORDERED: BRETHINE SUB-Q PRN (17:22)
[2019-01-03 17:34] LABS: Platelet Count 90 K/mm3 (140-440)
[2019-01-03] MEDS ORDERED: PITOCin/NS 30 UNIT/500ML 30 UNITS/500 ML BAG IV SCH ×2 (18:00→19:00)
[2019-01-03] MEDS ORDERED: LACTATED RINGERS 1,000 ML IV SCH (18:00)
--- NOTE | 2019-01-03 18:07 | Ultrasound Report ---
PROCEDURE: US OB LIMITED TECHNIQUE: Limited OB ultrasound for OTONIEL HISTORY: OTONIEL COMPARISONS: 06/10/2018 FINDINGS: LMP: 03/26/2018 Clinical Age: 40 W 3D LMP EDC 12/31/2018 Presentation: Cephalic Activity: Monitored Cardiac motion: 141 BPM using M-mode doppler Amniotic Fluid Volume: Adequate OTONIEL 8.8 cm (normal) Cervical Length: cm IMPRESSION: Single intrauterine viable with an approximate age of 40 weeks 3 days. OTONIEL is normal. This document is electronically signed by Cherry Ling MD., January 03 2019 06:05:37 PM ET
--- NOTE | 2019-01-03 18:13 | Ultrasound Report ---
PROCEDURE: US OB BPP WO NON-STRESS TECHNIQUE: Limited ultrasound BPP HISTORY: OTONIEL and BPP COMPARISONS: 06/10/2018 ultrasound FINDINGS: LMP 03/26/18 clinical Age : 40W 3 D LMP EDC 12/31/2018 Biophysical profile scoring [2]movement [2]tone [2]breathing [2]fluid 8/8 overall score Presentation: Cephalic Activity: Monitored Cardiac motion: 133 BPM using M-mode doppler Amniotic Fluid Volume: Adequate OTONIEL: 8.8 cm (normal) IMPRESSION: Single viable at 40 weeks 3 days with 8/8 biophysical profile score This document is electronically signed by Cherry Ling MD., January 03 2019 06:11:31 PM ET
[2019-01-03] MEDS ORDERED: AMPICILLIN/NS 2 GM/100 ML 2 GM/100 ML BAG IV ONE (19:00)
[2019-01-03] MEDS ORDERED: XYLOCAINE 2% INFILTRATI ONE (19:22)
[2019-01-03] MEDS: PITOCin/NS 20 UNIT/1000ML DRIP 20 UNITS/1,000 ML BAG IV SCH ×2 (19:24→20:49)
--- NOTE | 2019-01-03 19:44 | History and Physical Report ---
History of Present Illness Date of examination: 01/03/19 Date of admission: 01/03/19 16:51 Chief complaint: contractions History of present illness: 33y/o @ 40+3 weeks presents with regular uterine contractions. Patient had cervical change from 2cm to 7cm. Suspect that patient was ruptured. Patient initiated care @ 13 weeks with [facility]. course complicated by thrombocytopenia. Patient is GBS negative. Past History Past Medical History: other (thrombocytopenia) Past Surgical History: no surgical history [employer] ENG[employer]ER History: chlamydia, herpes Social history: single - Obstetrical History Expected Date of Delivery: 12/31/18 Actual Gestation: 40 Week(s) 4 Day(s) : 2 Para: 1 Hx # Term Pregnancies: 1 Number of Pregnancies: 0 Spontaneous Abortions: 0 Induced : 0 Number of Living Children: 1 Medications and Allergies Allergies Allergy/AdvReac Type Severity Reaction Status Date / Time No Known Allergies Allergy Verified 09/17/17 10:30 Home Medications Medication Instructions Recorded Confirmed Last Taken Type Ferrous Sulfate [Feosol 325 MG tab] 325 mg PO BID #60 tablet 01/21/15 09/20/17 Unknown Rx Multivitamin [Multi Vitamin Daily] 1 each PO DAILY #30 tablet 01/21/15 09/20/17 Unknown Rx Docusate Sodium [Colace] 100 mg PO BID PRN 09/20/17 09/20/17 Unknown History Valacyclovir HCl [Valtrex] 500 mg PO DAILY 09/20/17 09/20/17 Unknown History HYDROcodone/APAP 5-325 [[place] 1 each PO Q6HR PRN #30 tablet 09/21/17 Unknown Rx 5/325] Ibuprofen [Motrin] 600 mg PO Q8H PRN #30 tablet 09/21/17 Unknown Rx Ferrous Sulfate [Feosol 325 MG tab] 325 mg PO BID #60 tablet 09/22/17 Unknown Rx Acetaminophen 500 mg PO Q8H PRN #30 tablet 06/10/18 Unknown Rx Metoclopramide [Reglan] 10 mg PO TID PRN #60 tab 06/10/18 Unknown Rx 21/Iron Fu/Folic Acid 1 each PO DAILY #30 tablet 06/10/18 Unknown Rx [ Complete Caplet] Active Meds: Active Medications Butorphanol Tartrate (Stadol) 2 mg IV Q2H PRN PRN Reason: Pain , Severe (7-10) Last Admin: 01/03/19 18:46 Dose: 2 mg Documented by: Ephedrine Sulfate (Ephedrine Sulfate) 10 mg IV Q2M PRN PRN Reason: Hypotension Fentanyl (Sublimaze) 100 mcg IV Q2H PRN PRN Reason: Labor Pain Ampicillin Sodium (Polycillin/Ns 2 Gm/100 Ml) 2 gm in 100 mls @ 100 mls/hr IV ONCE ONE; Protocol Stop: 01/03/19 19:59 Last Admin: 01/03/19 18:46 Dose: 100 mls/hr Documented by: Lactated Ringer's (Lactated Ringers) 1,000 mls @ 125 mls/hr IV DIRECT JO ANN Oxytocin/Sodium Chloride (Pitocin/Ns 20 Unit/1000ml Drip) 20 units in 1,000 mls @ 125 mls/hr IV DIRECT JO ANN Oxytocin/Sodium Chloride (Pitocin/Ns 30 Unit/500ml) 30 units in 500 mls @ 1 mls/hr IV TITR JO ANN; Protocol Oxytocin/Sodium Chloride (Pitocin/Ns 30 Unit/500ml) 30 units in 500 mls @ 2 mls/hr IV TITR JO ANN; Protocol Mineral Oil (Mineral Oil) 30 ml PO QHS PRN PRN Reason: Constipation Terbutaline Sulfate (Brethine) 0.25 mg SUB-Q ONCE PRN PRN Reason: Hyperstimulation/Hypertonicity Terbutaline Sulfate (Brethine) 0.25 mg IVP ONCE PRN PRN Reason: Hyperstimulation/Hypertonicity Review of Systems Genitourinary: pelvic pain, contractions - Vital Signs Vital signs: Vital Signs Pulse BP 90 140/77 01/03/19 14:42 01/03/19 14:42 Temp Pulse Resp BP Pulse Ox 98.1 F 93 H 16 117/67 98 01/03/19 14:45 01/03/19 19:35 01/03/19 14:45 01/03/19 19:35 01/03/19 17:18 - Physical Exam Breasts: Positive: deferred Cardiovascular: Regular rate Lungs: Positive: Clear to auscultation Results Result Diagrams: 01/04/19 09:17 Abnormal lab results 01/03/19 Range/Units 15:52 RDW 15.7 H (13.2-15.2) % Plt Count 90 L (140-440) K/mm3 [place] % (Auto) 9.8 H (0.0-7.3) % All other labs normal. Assessment and Plan - Patient Problems (1) Active labor at term Current Visit: Yes Status: Acute Plan to address problem: admit to L&D
[2019-01-03] MEDS ORDERED: TORADOL IV ONE (19:50)
--- NOTE | 2019-01-03 19:50 | Procedure Note ---
OB Delivery Note - Delivery Date of Delivery: 01/03/19 Surgeon: JUSTICE POOLE - Vaginal Delivery presentation: vertex Delivery position: OA Intrapartum events: meconium, precipitous labor- <3hr Delivery monitor: external FHT Route of delivery: Delivery placenta: spontaneous Delivery cord: 3 umbilical vessels Delivery laceration: 1st degree Anesthesia: none Delivery comments: Patient had rapid progression through her labor. She had spontaneous vaginal delivery attended by nursing of liveborn male with apgars of 8/9 and weight of 9lbs 10oz. The placenta delivered spontaneously intact with a 3VC. The patient sustained a midline first degree laceration left unrepaired. - A at 1 minute: 8 at 5 minutes: 9 Infant Gender: Male (weight 9lbs 10oz)
[2019-01-03] MEDS ORDERED: LANSINOH TP PRN (19:51)
[2019-01-03] MEDS ORDERED: MILK OF MAGNESIA PO PRN (19:51)
[2019-01-03] MEDS ORDERED: PHENERGAN PR PRN (19:51)
[2019-01-03] MEDS ORDERED: TUCKS PAD TP PRN (19:51)
[2019-01-03] MEDS ORDERED: ZOFRAN IV PRN (19:51)
[2019-01-03] MEDS ORDERED: BENADRYL PO PRN (19:51)
[2019-01-03] MEDS ORDERED: DULCOLAX PR PRN (19:51)
[2019-01-03] MEDS ORDERED: TYLENOL PO PRN (19:51)
[2019-01-03] MEDS ORDERED: PHENERGAN PO PRN (19:51)
[2019-01-03] MEDS ORDERED: SODIUM CHLORIDE FLUSH SYRINGE 10 ML IV PRN (20:00)
[2019-01-03] MEDS: IBUPROFEN PO SCH (23:07)
[2019-01-04] MEDS: NORCO 5/325 PO PRN ×3 (06:21→22:14)
[2019-01-04] MEDS: IBUPROFEN PO SCH ×3 (06:21→18:08)
[2019-01-04 10:11] LABS: Hematocrit 31.7 % (30.3-42.9); Hemoglobin 10.6 gm/dl (10.1-14.3)
--- NOTE | 2019-01-04 12:20 | Progress Note ---
Assessment and Plan - Patient Problems (1) Active labor at term Current Visit: Yes Status: Acute Plan to address problem: patient doing well discharge home tomorrow Subjective - Subjective Date of service: 01/04/19 Interval history: Patient without complaints. Pain well controlled. Tolerating regular diet Patient reports: appetite normal, voiding normally, pain well controlled : doing well Objective - Vital Signs Latest vital signs: Vital Signs Temp Pulse Resp BP BP Pulse Ox 01/04/19 04:00 98.7 F 77 18 114/78 01/03/19 21:23 83 122/72 01/03/19 21:21 83 18 122/72 01/03/19 19:35 93 H 117/67 01/03/19 19:16 18 01/03/19 17:18 99 H 98 01/03/19 17:13 89 97 01/03/19 17:08 95 H 97 01/03/19 17:03 81 97 01/03/19 16:58 107 H 97 01/03/19 16:53 96 H 116/72 97 01/03/19 14:45 98.1 F 16 01/03/19 14:42 90 140/77 Intake and Output 01/03/19 01/04/19 01/04/19 22:59 06:59 14:59 Intake Total 177.083 Output Total 1400 Balance 177.083 -1400 Intake: IV 177.083 PITOCin/NS 20 UNIT/1000ML 177.083 DRIP 20 units In 1,000 ml @ 125 mls/hr IV DIRECT JO ANN Rx#:[id number] Output: Urine 1400 Void 1400 Other: Total, Output Amount 600 # Voids Void 1 Estimated Blood Loss 250 - Labs Labs: Abnormal lab results 01/03/19 Range/Units 15:52 RDW 15.7 H (13.2-15.2) % Plt Count 90 L (140-440) K/mm3 [place] % (Auto) 9.8 H (0.0-7.3) %
--- NOTE | 2019-01-04 12:21 | Discharge Summary ---
Providers - Providers Date of Admission: 01/03/19 16:51 Date of discharge: 01/05/19 Attending physician: JUSTICE POOLE Primary care physician: JUSTICE POOLE Hospitalization Reason for admission: active labor Delivery: Discharge diagnosis: IUP at term delivered Hospital course: Patient admitted in labor with +SROM. Had a . uncomplicated Condition at discharge: Good Disposition: DC-01 TO HOME OR SELFCARE - Discharge Diagnoses (1) Active labor at term Status: Acute Plan - Discharge Medications Prescriptions: Ibuprofen [Motrin] 800 mg PO Q8HR PRN #60 tablet PRN Reason: Pain, Mild (1-3) HYDROcodone/ACETAMINOPHEN [[place] 5-325 Tablet] 1 each PO Q6H PRN #20 tablet PRN Reason: Pain, Mild (1-3) - Provider Discharge Summary Activity: no sex for 6 weeks, no heavy lifting 4 weeks, no strenuous exercise Diet: routine Instructions: routine Additional instructions: [] Smoking cessation referral if applicable(refer to patient education folder for contact #) [] Refer to [facility] Booklet Call your doctor immediately for: * Fever > 100.5 * Heavy vaginal bleeding ( >1 pad per hour) * Severe persistent headache * Shortness of breath * Reddened, hot, painful area to leg or breast * schedule visit in 4 weeks - Follow up plan
[2019-01-05] MEDS: IBUPROFEN PO SCH (05:34)
[2019-01-05] MEDS: NORCO 5/325 PO PRN (05:34)
[2019-01-05 13:00] VITALS: BP 122/77
== END 2019-01-05 16:00 | disposition home or self-care (01) | DRG 775 ==
LOC: TRG 14:17 → LD 16:51 → OB 22:08
PROVIDERS: ADMIT Obstetrics & Gynecology; ATTEND Obstetrics & Gynecology
PROC: 10E0XZZ Delivery of Products of Conception, External Approach (ICD-10-PCS; principal; 2019-01-03)
DX: O62.3 Precipitate labor (principal); Z37.0 Single live birth; O77.0 Labor and delivery complicated by meconium in amniotic fluid; O70.0 First degree perineal laceration during delivery; Z3A.40 40 weeks gestation of pregnancy; Z79.899 Other long term (current) drug therapy; O99.119 Other diseases of the blood and blood-forming organs and certain disorders involving the immune mechanism complicating pregnancy, unspecified trimester
CPT/HCPCS: 36415; 76815; 76819; 85014; 85018; 85025; 86592; 86850; 86900; 86901; G0378; J0290; J0595; J1885; J2590; J7120

== ENCOUNTER 2019-01-12 21:10 | Observation (INO) | payer MEDICAID ==
[2019-01-12] MEDS ORDERED: MORPHINE IV ONE ×2 (21:35→23:58)
[2019-01-12] MEDS ORDERED: NACL 0.9% 1000 ML 1,000 ML IV ONE ×2 (21:35)
[2019-01-12] MEDS ORDERED: ZOFRAN IV ONE (21:35)
--- NOTE | 2019-01-12 21:56 | Emergency Department Report ---
ED Female HPI - General Chief complaint: Vaginal Bleeding Stated complaint: BLEEDING Time Seen by Provider: 01/12/19 21:30 Source: patient Mode of arrival: Ambulatory Limitations: No Limitations - History of Present Illness Initial comments: Patient is a 33-year-old [place] female who is 9 days who is here for heavy vaginal bleeding. Patient states that bleeding and lower abdominal cramping that started approximately 2 days ago. Patient states the bleeding worsened today. Patient states that she is changed her pad over the last sev eral hours for times an hour. Patient states that she did have a low platelet count in the past and is taking prednisone. Patient's last platelet count at time of discharge was 90,000. In addition to the severe bleeding she is passing several large clots patient also states she has some dizziness in standing and feels faint. She has not had any actual syncope. Severity scale (0 -10): 8 Quality: cramping - Related Data Home Medications Medication Instructions Recorded Confirmed Last Taken Docusate Sodium [Colace] 100 mg PO BID PRN 09/20/17 01/05/19 Unknown Valacyclovir HCl [Valtrex] 500 mg PO DAILY 09/20/17 01/05/19 Unknown Previous Rx's Medication Instructions Recorded Last Taken Type Ferrous Sulfate [Feosol 325 MG tab] 325 mg PO BID #60 tablet 01/21/15 Unknown Rx Multivitamin [Multi Vitamin Daily] 1 each PO DAILY #30 tablet 01/21/15 Unknown Rx HYDROcodone/APAP 5-325 [[place] 1 each PO Q6HR PRN #30 tablet 09/21/17 Unknown Rx 5/325] Ibuprofen [Motrin] 600 mg PO Q8H PRN #30 tablet 09/21/17 Unknown Rx Ferrous Sulfate [Feosol 325 MG tab] 325 mg PO BID #60 tablet 09/22/17 Unknown Rx Acetaminophen 500 mg PO Q8H PRN #30 tablet 06/10/18 Unknown Rx Metoclopramide [Reglan] 10 mg PO TID PRN #60 tab 06/10/18 Unknown Rx 21/Iron Fu/Folic Acid 1 each PO DAILY #30 tablet 06/10/18 Unknown Rx [ Complete Caplet] HYDROcodone/ACETAMINOPHEN [[place] 1 each PO Q6H PRN #20 tablet 01/04/19 Unknown Rx 5-325 Tablet] Ibuprofen [Motrin] 800 mg PO Q8HR PRN #60 tablet 01/04/19 Unknown Rx Allergies Allergy/AdvReac Type Severity Reaction Status Date / Time No Known Allergies Allergy Verified 09/17/17 10:30 ED Review of Systems ROS: Stated complaint: BLEEDING Other details as noted in HPI Comment: All other systems reviewed and negative ED Past Medical Hx - Past Medical History Hx Hypertension: No Hx Heart Attack/AMI: No Hx Congestive Heart Failure: No Hx Diabetes: No Hx Deep Vein Thrombosis: No Hx Pulmonary Embolism: No Hx Liver Disease: No Hx Renal Disease: No Hx Sickle Cell Disease: No Hx Arthritis: No Hx Seizures: No Hx Kidney Stones: No Hx Asthma: No Hx COPD: No Hx Tuberculosis: No Hx Dementia: No Hx HIV: No Additional medical history: Anemia - Surgical History Hx Coronary Stent: No Hx Open Heart Surgery: No Hx Pacemaker: No Hx Internal Defibrillator: No Hx Cholecystectomy: No Hx Appendectomy: No Hx Breast Surgery: No - Social History Smoking Status: Never Smoker - Medications Home Medications: Home Medications Medication Instructions Recorded Confirmed Last Taken Type Ferrous Sulfate [Feosol 325 MG tab] 325 mg PO BID #60 tablet 01/21/15 01/05/19 Unknown Rx Multivitamin [Multi Vitamin Daily] 1 each PO DAILY #30 tablet 01/21/15 01/05/19 Unknown Rx Docusate Sodium [Colace] 100 mg PO BID PRN 09/20/17 01/05/19 Unknown History Valacyclovir HCl [Valtrex] 500 mg PO DAILY 09/20/17 01/05/19 Unknown History HYDROcodone/APAP 5-325 [[place] 1 each PO Q6HR PRN #30 tablet 09/21/17 01/05/19 Unknown Rx 5/325] Ibuprofen [Motrin] 600 mg PO Q8H PRN #30 tablet 09/21/17 01/05/19 Unknown Rx Ferrous Sulfate [Feosol 325 MG tab] 325 mg PO BID #60 tablet 09/22/17 01/05/19 Unknown Rx Acetaminophen 500 mg PO Q8H PRN #30 tablet 06/10/18 01/05/19 Unknown Rx Metoclopramide [Reglan] 10 mg PO TID PRN #60 tab 06/10/18 01/05/19 Unknown Rx 21/Iron Fu/Folic Acid 1 each PO DAILY #30 tablet 06/10/18 01/05/19 Unknown Rx [ Complete Caplet] HYDROcodone/ACETAMINOPHEN [[place] 1 each PO Q6H PRN #20 tablet 01/04/19 Unknown Rx 5-325 Tablet] Ibuprofen [Motrin] 800 mg PO Q8HR PRN #60 tablet 01/04/19 Unknown Rx ED Physical Exam - General Limitations: No Limitations General appearance: alert, in no apparent distress - Head Head exam: Present: atraumatic, normocephalic - Eye Eye exam: Present: normal appearance - ENT ENT exam: Present: mucous membranes moist - Neck Neck exam: Present: normal inspection - Respiratory Respiratory exam: Present: normal lung sounds bilaterally. Absent: respiratory distress, wheezes, rales, rhonchi - Cardiovascular Cardiovascular Exam: Present: regular rate, normal rhythm. Absent: systolic murmur, diastolic murmur, rubs, gallop - GI/Abdominal GI/Abdominal exam: Present: soft, tenderness, normal bowel sounds. Absent: distended, guarding, rebound, rigid - Speculum exam: Present: vaginal bleeding (. There are several large clots in the vaginal vault. These are removed and there was a clot at the os. Patient had a slow trickle around this clot.). Absent: normal speculum exam - Extremities Exam Extremities exam: Present: normal inspection - Back Exam Back exam: Present: normal inspection - Neurological Exam Neurological exam: Present: alert, oriented X3 - Psychiatric Psychiatric exam: Present: normal affect, normal mood - Skin Skin exam: Present: warm, dry, intact, normal color. Absent: rash ED Course Vital Signs 01/12/19 01/12/19 21:19 23:53 Temperature 98 F Pulse Rate 152 H Respiratory 20 18 Rate Blood Pressure 148/100 [Right] O2 Sat by Pulse 97 100 Oximetry - Reevaluation(s) Reevaluation #1: 01/13/19 00:23 Patient was hydrated and heart rate decreased to 110. Patient required 8 mg of morphine and Toradol to decrease her pain to a 4. Patient still having cramping and heavy vaginal bleeding at this time. Patient still passing large clots. Did discuss patient's care with Dr. Lincoln and she suggested adding Methergi ne to the patient's treatment regimen. Patient to be admitted to the hospital for observation. ED Medical Decision Making - Lab Data Result diagrams: 01/12/19 21:46 01/12/19 21:46 - EKG Data -: EKG Interpreted by Me EKG shows normal: sinus rhythm, axis, intervals, QRS complexes, ST-T waves Rate: tachycardia - EKG Data 01/12/19 21:56 EKG shows sinus tachycardia - Radiology Data [facility] [address] [place] [address] Ultrasound Report Signed Patient: JADE CARDOSO MR #: [id number] : 1985 Acct:[id number] Age/Sex: 33 / F ADM Date: 01/12/19 Loc: ED Attending Dr: Ordering Physician: DIMITRI EWING MD Date of Service: 01/12/19 Procedure(s): US pelvic complete Accession Number(s): [id number] cc: DIMITRI EWING MD PROCEDURE: US PELVIC COMPLETE TECHNIQUE: Grayscale and color images were obtained of the pelvis. HISTORY: heavy vag bleed, patient is 9 days COMPARISONS: FINDINGS: Enlarged, post gravid uterus measures 16.6 x 11.3 x 11.5 cm in size. Thickened and heterogeneous endometrium measures 6.5 cm in caliber. No increased vascular flow within the endometrium. Unremarkable appearance of the left and right ovaries. No free fluid in the pelvis. IMPRESSION: 1. Enlarged, post gravid uterus with thickened endometrium, likely from blood products. This document is electronically signed by Guillermo Dennis MD., January 13 2019 12:03:11 AM ET Transcribed By: NSS Dictated By: GUILLERMO DENNIS MD Electronically Authenticated By: GUILLERMO DENNIS MD Signed Date/Time: 01/13/19 0005 Critical care attestation.: If time is entered above; I have spent that time in minutes in the direct care of this critically ill patient, excluding procedure time. ED Disposition Clinical Impression: Abnormal vaginal bleeding Disposition: OP ADMIT IP TO THIS HOSP Is pt being admited?: Yes Does the pt Need Aspirin: No Condition: Stable Time of Disposition: 00:24
[2019-01-12 22:01] LABS: Basophils # (Auto) 0.1 K/mm3 (0.0-0.1); Basophils % (Auto) 0.8 % (0.0-1.8); Eosinophils # (Auto) 0.1 K/mm3 (0.0-0.4); Eosinophils % (Auto) 0.9 % (0.0-4.3); Hematocrit 37.4 % (30.3-42.9); Hemoglobin 12.3 gm/dl (10.1-14.3); Lymphocytes # (Auto) 1.8 K/mm3 (1.2-5.4); Lymphocytes % (Auto) 16.6 % (13.4-35.0); Mean Corpuscular HGB Conc 33 % (30-34); Mean Corpuscular Volume 90 fl (79-97); Monocytes # (Auto) 0.6 K/mm3 (0.0-0.8); Monocytes % (Auto) 5.7 % (0.0-7.3); Platelet Count 193 K/mm3 (140-440); Red Blood Count 4.18 M/mm3 (3.65-5.03); Red Cell Distribution Width 15.6 % (13.2-15.2)
[2019-01-12 22:10] LABS: INR 0.93 (0.87-1.13); Partial Thromboplastin Time 27.6 Sec. (24.2-36.6)
[2019-01-12 22:21] LABS: BUN/Creatinine Ratio 11; Blood Urea Nitrogen 9 mg/dL (7-17); Calcium 9.3 mg/dL (8.4-10.2); Hemolysis Index 3
[2019-01-12] MEDS ORDERED: METHERGINE PO ONE (23:13)
[2019-01-12] MEDS ORDERED: MORPHINE ONE (23:38)
--- NOTE | 2019-01-13 00:05 | Ultrasound Report ---
PROCEDURE: US PELVIC COMPLETE TECHNIQUE: Grayscale and color images were obtained of the pelvis. HISTORY: heavy vag bleed, patient is 9 days COMPARISONS: FINDINGS: Enlarged, post gravid uterus measures 16.6 x 11.3 x 11.5 cm in size. Thickened and heterogeneous endometrium measures 6.5 cm in caliber. No increased vascular flow within the endometrium. Unremarkable appearance of the left and right ovaries. No free fluid in the pelvis. IMPRESSION: 1. Enlarged, post gravid uterus with thickened endometrium, likely from blood products. This document is electronically signed by Sharon Montgomery MD., January 13 2019 12:03:11 AM ET
[2019-01-13] MEDS ORDERED: TORADOL IV ONE (00:16)
[2019-01-13] MEDS ORDERED: MORPHINE IV PRN (00:25)
[2019-01-13] MEDS ORDERED: NACL 0.9% 1000 ML 1,000 ML IV SCH (01:00)
[2019-01-13] MEDS ORDERED: MORPHINE ONE (01:12)
[2019-01-13] MEDS ORDERED: TORADOL ONE (01:12)
[2019-01-13] MEDS ORDERED: IBUPROFEN PO PRN (02:39)
[2019-01-13] MEDS: PERCOCET 5/325 PO PRN ×2 (02:59→09:58)
[2019-01-13] MEDS ORDERED: D5LR 1,000 ML IV SCH (03:00)
[2019-01-13 08:10] VITALS: BP 128/68
--- NOTE | 2019-01-13 09:35 | Short Stay Summary ---
Short Stay Documentation Date of service: 01/13/19 Narrative H&P: 33y/o s/p 10 days ago presents with vaginal bleeding and passage of clots. She complaints of uterine cramping and pain. She denies any fever or chills or abnormal vaginal discharge. Pelvic ultrasound demonstrated a thickened endometrium with clots. - History Principal diagnosis: Vaginal bleeding Past Medical History: anemia Past Surgical History: No surgical history Social history: - Allergies and Medications Current Medications: Allergies No Known Allergies Allergy (Verified 09/17/17 10:30) Home Medications Medication Instructions Recorded Confirmed Last Taken Type Ferrous Sulfate [Feosol 325 MG tab] 325 mg PO BID #60 tablet 01/21/15 01/05/19 Unknown Rx Multivitamin [Multi Vitamin Daily] 1 each PO DAILY #30 tablet 01/21/15 01/05/19 Unknown Rx Docusate Sodium [Colace] 100 mg PO BID PRN 09/20/17 01/05/19 Unknown History Valacyclovir HCl [Valtrex] 500 mg PO DAILY 09/20/17 01/05/19 Unknown History HYDROcodone/APAP 5-325 [[place] 1 each PO Q6HR PRN #30 tablet 09/21/17 01/05/19 Unknown Rx 5/325] Ibuprofen [Motrin] 600 mg PO Q8H PRN #30 tablet 09/21/17 01/05/19 Unknown Rx Ferrous Sulfate [Feosol 325 MG tab] 325 mg PO BID #60 tablet 09/22/17 01/05/19 Unknown Rx Acetaminophen 500 mg PO Q8H PRN #30 tablet 06/10/18 01/05/19 Unknown Rx Metoclopramide [Reglan] 10 mg PO TID PRN #60 tab 06/10/18 01/05/19 Unknown Rx 21/Iron Fu/Folic Acid 1 each PO DAILY #30 tablet 06/10/18 01/05/19 Unknown Rx [ Complete Caplet] HYDROcodone/ACETAMINOPHEN [[place] 1 each PO Q6H PRN #20 tablet 01/04/19 Unknown Rx 5-325 Tablet] Ibuprofen [Motrin] 800 mg PO Q8HR PRN #60 tablet 01/04/19 Unknown Rx HYDROcodone/APAP 5-325 [[place] 1 each PO Q6HR PRN #20 tablet 01/13/19 Unknown Rx 5/325] Methylergonovine [Methergine] 0.2 mg PO Q8HR #9 tablet 01/13/19 Unknown Rx Tramadol HCl [Ultram] 50 mg PO Q8H PRN #30 tablet 01/13/19 Unknown Rx Active Medications Dextrose/Lactated Ringer's (D5lr) 1,000 mls @ 125 mls/hr IV DIRECT JO ANN Last Admin: 01/13/19 03:00 Dose: 125 mls/hr Documented by: Ibuprofen (Motrin) 600 mg PO Q6H PRN PRN Reason: Pain, Moderate (4-6) Last Admin: 01/13/19 02:59 Dose: 600 mg Documented by: Oxycodone/Acetaminophen ([place] 5/325) 1 tab PO Q6H PRN PRN Reason: Pain, Moderate (4-6) Last Admin: 01/13/19 02:59 Dose: 1 tab Documented by: - Physical exam General appearance: no acute distress Integumentary: no rash HEENT: Atraumatic Lungs: Clear to auscultation - Hospital course Hospital course: Patient admitted for observation from the ED. Vitals remained stable. Patient with slight improvement in symptoms. Will attempt medical management of bleeding. - Disposition Condition at discharge: Good Disposition: DC-01 TO HOME OR SELFCARE Short Stay Discharge Plan Activity: other (pelvic rest; will use methergine as prescribed for the next 3 days) Diet: regular Additional Instructions: schedule followup at [facility] in the next 1-2 weeks Prescriptions: Methylergonovine [Methergine] 0.2 mg PO Q8HR #9 tablet HYDROcodone/APAP 5-325 [[place] 5/325] 1 each PO Q6HR PRN #20 tablet PRN Reason: Pain Tramadol HCl [Ultram] 50 mg PO Q8H PRN #30 tablet PRN Reason: Pain, Mild (1-3)
== END 2019-01-13 10:35 | disposition home or self-care (01) ==
LOC: ED 21:10 → 3A 01-13 00:26 → OB 01-13 00:56
PROVIDERS: ADMIT Obstetrics & Gynecology; ATTEND Obstetrics & Gynecology
DX: O72.1 Other immediate postpartum hemorrhage (principal); R10.9 Unspecified abdominal pain; Z79.899 Other long term (current) drug therapy
CPT/HCPCS: 36415; 76856; 80048; 85025; 85610; 85730; 86850; 86900; 86901; 93005; 93010; 96374; 96375; 96376; 99284; G0378; J1885; J2270; J2405; J7030; J7121

== ENCOUNTER 2022-03-02 11:37 | Outpatient (CLI) | payer MEDICAID ==
[2022-03-02] MEDS ORDERED: LACTATED RINGERS 1,000 ML IV ONE (12:15)
[2022-03-02 12:36] VITALS: BP 126/73
[2022-03-02 13:18] LABS: Bacteria,Urine 1+ /HPF (Negative); Bilirubin,Urine NEG (Negative); Blood,Urine NEG (Negative); Color,Urine Yellow (Yellow); Mucus,Urine FEW /HPF; Protein,Urine <15 mg/dL mg/dL (Negative); Urobilinogen,Urine < 2.0 mg/dL (<2.0)
== END 2022-03-02 15:36 | disposition home or self-care (01) ==
LOC: TRG 11:37 → APU 11:38 → TRG 15:36
PROVIDERS: ATTEND Obstetrics & Gynecology
DX: O26.893 Other specified pregnancy related conditions, third trimester (principal); R10.9 Unspecified abdominal pain; O99.013 Anemia complicating pregnancy, third trimester; D64.9 Anemia, unspecified; Z3A.30 30 weeks gestation of pregnancy
CPT/HCPCS: 36415; 59025; 81001; 82731; 96360; J7120

== ENCOUNTER 2022-04-10 18:36 | Outpatient (CLI) | payer MEDICAID ==
[2022-04-10 19:12] VITALS: BP 127/67
[2022-04-10] MEDS ORDERED: LACTATED RINGERS 1,000 ML IV ONE (19:36)
[2022-04-10 20:16] LABS: Mucus,Urine FEW /HPF
[2022-04-10 20:43] LABS: Color,Urine Straw (Yellow)
[2022-04-10 20:44] LABS: Protein,Urine <15 mg/dL mg/dL (Negative); Urobilinogen,Urine < 2.0 mg/dL (<2.0)
[2022-04-10 20:45] LABS: Bilirubin,Urine NEG (Negative)
--- NOTE | 2022-04-10 21:22 | Ultrasound Report ---
ULTRASOUND OBSTETRIC LIMITED INDICATION / CLINICAL INFORMATION: Evaluate amniotic fluid index. COMPARISON: No relevant prior imaging study available. FINDINGS: AMNIOTIC FLUID INDEX (cm) = 11.0 PRESENTATION: Cephalic. HEART RATE (beats per minute): 143 ADDITIONAL FINDINGS: None. IMPRESSION: 1. Normal amniotic fluid index of 11.0 cm. 2. No other significant abnormality. Signer Name: Rafa Ochoa MD Signed: 04/10/2022 9:18 PM Workstation Name: [id number]
== END 2022-04-10 21:22 | disposition home or self-care (01) ==
LOC: TRG 18:36 → APU 18:39 → TRG 21:22
PROVIDERS: ATTEND Obstetrics & Gynecology
DX: O26.893 Other specified pregnancy related conditions, third trimester (principal); R10.30 Lower abdominal pain, unspecified; Z3A.35 35 weeks gestation of pregnancy
CPT/HCPCS: 36415; 76815; 81001; 84112

== ENCOUNTER 2022-05-04 15:01 | Inpatient (IN) | payer MEDICAID ==
[2022-05-04] MEDS ORDERED: NALOXONE 0.4 MG/1 ML INJ IV PRN (18:47)
[2022-05-04] MEDS ORDERED: LOPERAMIDE 2 MG CAP PO PRN (18:47)
[2022-05-04] MEDS ORDERED: OXYTOCIN 10 UNIT/1 ML INJ IM PRN (18:47)
[2022-05-04] MEDS ORDERED: METHYLERGONOVINE MALEATE 0.2 MG/ML VIAL IM PRN (18:47)
[2022-05-04] MEDS ORDERED: ACETAMINOPHEN 325 MG TAB PO PRN (18:47)
[2022-05-04] MEDS ORDERED: fentaNYL 100 MCG/2 ML INJ IV PRN (18:47)
[2022-05-04] MEDS ORDERED: miSOPROStol 200 MCG TAB PR PRN (18:47)
[2022-05-04] MEDS ORDERED: CARBOPROST TROMETHAMINE 250 MCG/1 ML INJ IM PRN (18:47)
[2022-05-04] MEDS ORDERED: ONDANSETRON 4 MG/2 ML INJ IV PRN (18:47)
[2022-05-04] MEDS ORDERED: TERBUTALINE 1 MG/1 ML INJ SUB-Q PRN (18:47)
[2022-05-04] MEDS ORDERED: MINERAL OIL 30 ML ORAL LIQD PO PRN (18:47)
[2022-05-04] MEDS ORDERED: ePHEDrine SULFATE 50 MG/1 ML INJ IV PRN (18:47)
[2022-05-04] MEDS ORDERED: LIDOCAINE (2%) 20 MG/1 ML VIAL 20 ML MDV INFILTRATI ONE (18:47)
[2022-05-04] MEDS ORDERED: BUTORPHANOL 2 MG/1 ML INJ IV PRN (18:47)
[2022-05-04] MEDS ORDERED: DEXTROSE 50% IN WATER (25GM) 50 ML SYRINGE IV PRN (18:52)
[2022-05-04] MEDS ORDERED: INSULIN REGULAR, HUMAN 100 UNITS/1 ML SUB-Q PRN (18:52)
[2022-05-04] MEDS ORDERED: OXYTOCIN DRIP 30 UNITS/500 ML BAG IV SCH (19:00)
[2022-05-04 19:46] LABS: Hemoglobin 12.8 gm/dl (10.1-14.3); Mean Corpuscular HGB Conc 35 % (30-34); Mean Corpuscular Volume 94 fl (79-97); Red Blood Count 3.92 M/mm3 (3.65-5.03); Red Cell Distribution Width 14.3 % (13.2-15.2)
[2022-05-04 19:53] LABS: Platelet Count 92 K/mm3 (140-440)
[2022-05-04] MEDS: LACTATED RINGERS 1,000 ML IV SCH (20:36)
[2022-05-04] MEDS: OXYTOCIN DRIP 30 UNITS/500 ML BAG IV SCH (22:00)
--- NOTE | 2022-05-04 22:00 | History and Physical Report ---
History of Present Illness Date of examination: 05/04/22 Chief complaint: scheduled induction History of present illness: Pt is a 36 year old -[place] Island[place] female ELLEN 05/11/22 at 39w0d who presents for induction of labor secondary to gestational diabetes. She reports irregular contractions, and denies vaginal bleeding or leakage of fluid. She has had care at [facility] since 12 wks complicated by aforementioned gestational diabetes, LGA fetus, morbid obesity, constipation on Colace, h/o anemia and thrombocytopenia s/p Hematology referral, currently on prednisone 10 mg daily with instruction to continue until 06/09/22, hemorrhoids, Rubella Equivocal, and cystitis that was treated. She is GBS negative. Past History Past Medical History: diabetes (gestational diabetes ), hematologic disorders (thrombocytopenia, anemia ), other (hemorrhoids, morbid obesity ) Past Surgical History: no surgical history Family/Genetic History: hypertension, cancer Social history: no significant social history - Obstetrical History Expected Date of Delivery: 05/11/22 Actual Gestation: 39 Week(s) 1 Day(s) : 3 Para: 2 Hx # Term Pregnancies: 2 Number of Pregnancies: 0 Spontaneous Abortions: 0 Induced : 0 Number of Living Children: 2 Medications and Allergies Allergies Allergy/AdvReac Type Severity Reaction Status Date / Time No Known Allergies Allergy Verified 09/17/17 10:30 Home Medications Medication Instructions Recorded Confirmed Last Taken Type Ferrous Sulfate [Feosol 325 MG tab] 325 mg PO BID #60 tablet 01/21/15 01/05/19 Unknown Rx Multivitamin [Multi Vitamin Daily] 1 each PO DAILY #30 tablet 01/21/15 01/05/19 Unknown Rx Docusate Sodium [Colace] 100 mg PO BID PRN 09/20/17 01/05/19 Unknown History Valacyclovir HCl [Valtrex] 500 mg PO DAILY 09/20/17 01/05/19 Unknown History HYDROcodone/APAP 5-325 [[place] 1 each PO Q6HR PRN #30 tablet 09/21/17 01/05/19 Unknown Rx 5/325] Ibuprofen [Motrin] 600 mg PO Q8H PRN #30 tablet 09/21/17 01/05/19 Unknown Rx Ferrous Sulfate [Feosol 325 MG tab] 325 mg PO BID #60 tablet 09/22/17 01/05/19 Unknown Rx Acetaminophen 500 mg PO Q8H PRN #30 tablet 06/10/18 01/05/19 Unknown Rx Metoclopramide [Reglan] 10 mg PO TID PRN #60 tab 06/10/18 01/05/19 Unknown Rx 21/Iron Fu/Folic Acid 1 each PO DAILY #30 tablet 06/10/18 01/05/19 U nknown Rx [ Complete Caplet] HYDROcodone/ACETAMINOPHEN [[place] 1 each PO Q6H PRN #20 tablet 01/04/19 Unknown Rx 5-325 Tablet] Ibuprofen [Motrin] 800 mg PO Q8HR PRN #60 tablet 01/04/19 Unknown Rx HYDROcodone/APAP 5-325 [[place] 1 each PO Q6HR PRN #20 tablet 01/13/19 Unknown Rx 5/325] Methylergonovine [Methergine] 0.2 mg PO Q8HR #9 tablet 01/13/19 Unknown Rx Tramadol HCl [Ultram] 50 mg PO Q8H PRN #30 tablet 01/13/19 Unknown Rx Active Meds: Active Medications Acetaminophen (Acetaminophen 325 Mg Tab) 650 mg PO Q4H PRN PRN Reason: Pain, Mild (1-3) Butorphanol Tartrate (Butorphanol 2 Mg/1 Ml Inj) 1 mg IV Q2H PRN PRN Reason: Pain, Moderate(4-6) LABOR PAIN Carboprost Tromethamine (Carboprost Tromethamine 250 Mcg/1 Ml Inj) 250 mcg IM ONCE PRN PRN Reason: Uterine Bleeding Dextrose (Dextrose 50% In Water (25gm) 50 Ml Syringe) 50 ml IV Q30MIN PRN; Protocol PRN Reason: Hypoglycemia Ephedrine Sulfate (Ephedrine Sulfate 50 Mg/1 Ml Inj) 10 mg IV Q2M PRN PRN Reason: Hypotension Fentanyl (Fentanyl 100 Mcg/2 Ml Inj) 100 mcg IV Q2H PRN PRN Reason: Pain,Severe (7-10) LABOR PAIN Oxytocin/Sodium Chloride (Pitocin/Ns 30 Unit/500ml) 30 units in 500 mls @ 2 mls/hr IV TITR JO ANN; Protocol Lactated Ringer's (Lactated Ringers) 1,000 mls @ 125 mls/hr IV DIRECT JO ANN Last Admin: 05/04/22 20:36 Dose: 125 mls/hr Oxytocin/Sodium Chloride (Pitocin/Ns 30 Unit/500ml) 30 units in 500 mls @ 40 mls/hr IV TITR JO ANN; Protocol Insulin Human Regular (Insulin Regular, Human 100 Units/1 Ml) 0 units SUB-Q Q4H PRN; Protocol PRN Reason: Hyperglycemia Loperamide HCl (Loperamide 2 Mg Cap) 2 mg PO ONCE PRN PRN Reason: give with Hemabate Methylergonovine Maleate (Methylergonovine Maleate 0.2 Mg/Ml Vial) 0.2 mg IM ONCE PRN PRN Reason: Uterine Bleeding Mineral Oil (Mineral Oil 30 Ml Oral Liqd) 30 ml PO QHS PRN PRN Reason: Constipation Misoprostol (Misoprostol 200 Mcg Tab) 800 mcg IN ONCE PRN PRN Reason: Uterine Bleeding Naloxone HCl (Naloxone 0.4 Mg/1 Ml Inj) 0.1 mg IV Q2MIN PRN PRN Reason: Res Rate </= 8 or 02 SAT < 92% Ondansetron HCl (Ondansetron 4 Mg/2 Ml Inj) 4 mg IV Q8H PRN PRN Reason: Nausea And Vomiting Oxytocin (Oxytocin 10 Unit/1 Ml Inj) 10 unit IM ONCE PRN PRN Reason: Uterine Bleeding Prednisone (Prednisone 10 Mg Tab) 10 mg PO QDAY JO ANN Terbutaline Sulfate (Terbutaline 1 Mg/1 Ml Inj) 0.25 mg SUB-Q ONCE PRN PRN Reason: Hyperstimulation/Hypertonicity Review of Systems All systems: negative - Vital Signs Vital signs: Vital Signs Pulse Pulse Ox 61 89 05/04/22 15:49 05/04/22 15:49 Temp Pulse Resp BP Pulse Ox 98.3 F 77 19 132/78 98 05/04/22 16:05 05/04/22 21:55 05/04/22 16:05 05/04/22 20:21 05/04/22 21:55 - Physical Exam Breasts: Positive: deferred Abdomen: Positive: soft (gravid ) Uterus: Positive: enlarged (gravid ) Extremities: Positive: edema (+1 ) - Obstetrical FHR: auscultation normal Uterine Contraction Monitor Mode: External Cervical Dilatation: 2 (per RN ) Cervical Effacement Percentage: 50 station: -3 Uterine Contraction Pattern: Irregular Uterine Tone Measurement Phase: Resting Uterine Contraction Intensity: Moderate Results Result Diagrams: 05/04/22 16:30 Abnormal lab results 05/04/22 Range/Units 16:30 MCH 33 H (28-32) pg MCHC 35 H (30-34) % Plt Count 92 L (140-440) K/mm3 All other labs normal. Assessment and Plan A: IUP at 39w0d Gestational diabetes LGA fetus Morbid obesity Constipation on Colace, h/o thrombocytopenia s/p Hematology referral currently on prednisone 10 mg daily with instruction to continue until 06/09/22 Anemia Hemorrhoids Rubella Equivocal GBS Negative P: Admit to labor and delivery Routine intrapartum care Accuchek q 4 hrs in latent labor, q1 hr in active labor Closely monitor maternal and status
[2022-05-04] MEDS: predniSONE 10 MG TAB PO SCH (22:11)
[2022-05-05] MEDS: LACTATED RINGERS 1,000 ML IV SCH (03:58)
[2022-05-05] MEDS ORDERED: PROMETHAZINE 25 MG RECT SUPP PR PRN ×2 (05:57→10:08)
[2022-05-05] MEDS ORDERED: NALOXONE 0.4 MG/1 ML INJ IV PRN (05:57)
[2022-05-05] MEDS ORDERED: ONDANSETRON 4 MG/2 ML INJ IV PRN ×2 (05:57→10:08)
[2022-05-05] MEDS ORDERED: PROMETHAZINE 25 MG TAB PO PRN ×2 (05:57→10:08)
[2022-05-05] MEDS ORDERED: fentaNYL-BUPIV 2 MCG/ML-0.125% 200 MCG/100 ML BAG EPIDURAL SCH (06:00)
[2022-05-05] MEDS ORDERED: miSOPROStol 200 MCG TAB ONE (06:26)
[2022-05-05] MEDS ORDERED: CARBOPROST TROMETHAMINE 250 MCG/1 ML INJ IM ONE (06:27)
[2022-05-05] MEDS ORDERED: METHYLERGONOVINE MALEATE 0.2 MG/ML VIAL IM ONE (06:27)
--- NOTE | 2022-05-05 07:02 | Procedure Note ---
OB Delivery Note - Delivery Date of Delivery: 05/05/22 Surgeon: STANFORD RANGEL Estimated blood loss: other (600 mL) - Vaginal Delivery presentation: vertex Delivery position: OA Intrapartum events: meconium, decreased FHT variability, uterine atony (s/p Methergine 0.2 mg IM, Misoprostol 800 mcg per rectum ) Delivery induction: oxytocin Delivery augmentation: rupture of membranes, pitocin Delivery monitor: external FHT, external uterine Route of delivery: Delivery placenta: spontaneous, other (trailing membranes ) Episiotomy: none Delivery laceration: 2nd degree (repaired with 2-0 Vicryl in a standard fashion ) Delivery repair: vicryl Anesthesia: epidural - Infant A at 1 minute: 8 at 5 minutes: 9 Gender: Male (4240g (9lb 6oz) @ 0602 am)
[2022-05-05] MEDS ORDERED: MAGNESIUM SULFATE 40GM/1000ML 40 GM/1,000 ML BAG IV ONE (07:12)
[2022-05-05] MEDS ORDERED: MAGNESIUM SULFATE 4 GM/100 ML BAG IV ONE ×2 (07:12→07:46)
--- NOTE | 2022-05-05 07:53 | XRay Report ---
CHEST 1 VIEW 05/05/2022 6:46 AM INDICATION / CLINICAL INFORMATION: Patient decrease in responsiveness. COMPARISON: None available. FINDINGS: SUPPORT DEVICES: None. HEART / MEDIASTINUM: Heart size appears borderline to mildly increased. LUNGS / PLEURA: Mild central pulmonary venous congestion is suspected but no evidence for acute infil trate, pleural effusion or pneumothorax. ADDITIONAL FINDINGS: No significant additional findings. IMPRESSION: 1. Borderline to mild cardiomegaly and central pulmonary venous congestion. Signer Name: Cassius Maguire Jr, MD Signed: 05/05/2022 7:49 AM Workstation Name: [id number]
[2022-05-05] MEDS ORDERED: MAGNESIUM SULFATE 40GM/1000ML 40 GM/1,000 ML BAG IV SCH (08:00)
[2022-05-05 08:14] LABS: Basophils % (Auto) 0.2 % (0.0-1.8); Eosinophils % (Auto) 0.1 % (0.0-4.3); Hematocrit 42.7 % (30.3-42.9); Lymphocytes # (Auto) 0.8 K/mm3 (1.2-5.4); Lymphocytes % (Auto) 8.2 % (13.4-35.0); Mean Corpuscular HGB Conc 33 % (30-34); Mean Corpuscular Volume 96 fl (79-97); Monocytes # (Auto) 0.5 K/mm3 (0.0-0.8); Monocytes % (Auto) 5.1 % (0.0-7.3); Red Blood Count 4.46 M/mm3 (3.65-5.03); Red Cell Distribution Width 14.3 % (13.2-15.2)
[2022-05-05 08:15] LABS: Platelet Count 86 K/mm3 (140-440)
[2022-05-05 08:19] LABS: Bilirubin,Urine NEG (Negative); Blood,Urine NEG (Negative); Color,Urine Yellow (Yellow); Protein,Urine <15 mg/dL mg/dL (Negative); Urobilinogen,Urine < 2.0 mg/dL (<2.0)
[2022-05-05 08:23] LABS: Bacteria,Urine 1+ /HPF (Negative); Mucus,Urine FEW /HPF
[2022-05-05 08:23] LABS: INR 0.88 (0.87-1.13)
[2022-05-05 08:24] LABS: ABG Base Excess -3.4 mmol/L (-2.0-3.0); ABG HCO3 20.8 mmol/L (20.0-26.0); ABG Methemoglobin 0.5 % (0.0-1.5); ABG Oxygen Saturation 96.7 % (95.0-99.0); ABG PCO2 35.3 mm Hg; ABG PH 7.389 pH Units (7.350-7.450); ABG PO2 82.1 mm Hg (80.0-90.0)
[2022-05-05 08:24] LABS: Partial Thromboplastin Time 30.9 Sec. (24.2-36.6)
--- NOTE | 2022-05-05 08:34 | Event Note ---
Date: 05/05/22 Late entry. Pt called out saying that she needs help. On-call provider and nurse went to the room and patient found to be holding the baby, and her right arm was noted to be shaking. She said "I can't breathe" in somewhat slurred speech. BP noted to be 170/110s with no prior elevation of blood pressures. Glucose noted to be 99. CBC, CMP, PT, PTT, INR, Fibrinogen ordered. ABG ordered. CXR ordered. EKG ordered- sinus bradycardia. Magnesium sulfate started for seizure prophylaxis for suspected eclamptic seizure. Pt initially arousable, and orie nted to person, place and time but reported being very tired. During observation, pt became more alert and able to open eyes and speak normally. Suspect pt was initially postictal. Pt to remain on labor and delivery for magnesium sulfate prophylaxis.
[2022-05-05 08:37] LABS: Alanine Aminotransferase 75 units/L (7-56); Albumin 3.4 g/dL (3.9-5); Blood Urea Nitrogen 5 mg/dL (7-17); Calcium 9.2 mg/dL (8.4-10.2); Hemolysis Index 17
[2022-05-05 08:46] LABS: BUN/Creatinine Ratio 10
[2022-05-05] MEDS: OXYTOCIN DRIP 30 UNITS/500 ML BAG IV SCH (08:55)
[2022-05-05] MEDS: predniSONE 10 MG TAB PO SCH (09:51)
[2022-05-05] MEDS ORDERED: MAGNESIUM HYDROXIDE (MOM) ORAL LIQD UDC PO PRN (10:08)
[2022-05-05] MEDS ORDERED: LANOLIN/ZINC/DIMETHICONE (LANSINOH) 7 GM TP PRN ×2 (10:08)
[2022-05-05] MEDS ORDERED: BENZOCAINE/MENTHOL 20/0.5% TOP SPRAY 56 GM TP PRN (10:08)
[2022-05-05] MEDS ORDERED: WITCH HAZEL/ GLYCERIN PAD TP PRN (10:08)
[2022-05-05] MEDS ORDERED: diphenhydrAMINE 25 MG CAP PO PRN (10:08)
[2022-05-05] MEDS ORDERED: hydrALAZINE 20 MG/1 ML INJ IV PRN (10:10)
[2022-05-05] MEDS ORDERED: LACTATED RINGERS 1,000 ML IV SCH (10:15)
[2022-05-05] MEDS: IBUPROFEN 800 MG TAB PO SCH ×2 (11:28→17:29)
[2022-05-05] MEDS ORDERED: CALCIUM GLUCONATE 1000 MG/10 ML INJ IV ONE (11:30)
[2022-05-05] MEDS: HYDROcodone/ACETAMINOPHEN 5-325 MG TAB PO PRN (11:42)
[2022-05-05] MEDS ORDERED: miSOPROStol 200 MCG TAB PR SCH (15:28)
--- NOTE | 2022-05-05 15:32 | Event Note ---
Date: 05/05/22 On-call provider contacted by this patient's RN secondary to increased vaginal bleeding over the past few fundal checks. Misoprostol 800 mcg per rectum ordered. Continue to monitor clinically.
[2022-05-06] MEDS: IBUPROFEN 800 MG TAB PO SCH ×3 (00:10→15:36)
[2022-05-06] MEDS: DOCUSATE SODIUM 100 MG CAP PO SCH ×3 (00:10→22:01)
[2022-05-06] MEDS: HYDROcodone/ACETAMINOPHEN 5-325 MG TAB PO PRN ×3 (04:16→20:11)
--- NOTE | 2022-05-06 07:24 | Progress Note ---
Assessment and Plan day 1 status post . Patient stable and doing well. Will discontinue mag and transferred to mother-baby. Continue routine care. Subjective - Subjective Date of service: 05/06/22 Principal diagnosis: Interval history: Patient 36-year-old female day #1. Patient had a spontaneous vaginal delivery yesterday, however reported some productivity about 1 hour after delivering that was suspicious for seizure activity. To that end, she was placed on magnesium for seizure prophylaxis although her blood pressure have been stable. Overnight her blood pressure was the low normal to normal and she reported no other issues. We will DC mag this morning and transfer her to mother-baby. Patient reports: appetite normal, voiding normally, pain well controlled, ambulating normally [place]: in NICU Objective - Vital Signs Latest vital signs: Vital Signs Temp Pulse Resp BP BP Pulse Ox Pulse Ox 05/06/22 07:16 71 99 05/06/22 07:11 62 96 05/06/22 07:07 75 121/87 05/06/22 07:06 91 H 97 05/06/22 07:01 73 96 05/06/22 06:56 70 97 05/06/22 06:51 81 97 05/06/22 06:46 62 96 05/06/22 06:41 64 96 05/06/22 06:36 63 96 05/06/22 06:31 70 98 05/06/22 06:26 63 98 05/06/22 06:21 62 97 05/06/22 06:16 63 97 05/06/22 06:11 62 96 05/06/22 06:07 97.8 F 61 18 118/77 118/77 96 05/06/22 06:06 69 96 05/06/22 06:01 66 96 05/06/22 05:56 63 97 05/06/22 05:51 67 96 05/06/22 05:46 66 96 05/06/22 05:41 64 97 05/06/22 05:36 65 96 05/06/22 05:31 62 96 05/06/22 05:26 73 97 05/06/22 05:21 65 96 05/06/22 05:16 67 96 05/06/22 05:11 67 96 05/06/22 05:07 68 128/78 05/06/22 05:06 69 96 05/06/22 05:01 71 96 05/06/22 04:56 97 H 98 05/06/22 04:51 69 97 05/06/22 04:46 68 96 05/06/22 04:41 68 97 05/06/22 04:36 75 96 05/06/22 04:31 73 96 05/06/22 04:26 77 96 05/06/22 04:21 74 97 05/06/22 04:16 81 97 05/06/22 04:11 101 H 98 05/06/22 04:07 59 L 107/68 05/06/22 04:06 67 96 05/06/22 04:01 64 97 05/06/22 03:56 65 98 05/06/22 03:51 63 98 05/06/22 03:46 64 97 05/06/22 03:41 65 97 05/06/22 03:36 62 98 05/06/22 03:31 76 99 05/06/22 03:26 64 97 05/06/22 03:21 67 97 05/06/22 03:16 65 97 05/06/22 03:11 64 97 05/06/22 03:07 63 104/63 05/06/22 03:06 66 97 05/06/22 03:01 66 97 05/06/22 02:56 66 97 05/06/22 02:51 65 98 05/06/22 02:46 61 95 05/06/22 02:41 67 97 05/06/22 02:36 67 96 05/06/22 02:31 71 96 05/06/22 02:26 67 97 05/06/22 02:21 69 97 05/06/22 02:16 67 96 05/06/22 02:11 67 96 05/06/22 02:07 63 18 119/65 119/65 97 05/06/22 02:06 67 96 05/06/22 02:01 66 96 05/06/22 01:56 68 96 05/06/22 01:51 67 96 05/06/22 01:45 66 96 05/06/22 01:41 67 96 05/06/22 01:36 70 96 05/06/22 01:31 68 96 05/06/22 01:26 67 96 05/06/22 01:21 67 97 05/06/22 01:16 69 96 05/06/22 01:11 71 96 05/06/22 01:07 70 110/68 05/06/22 01:06 79 96 05/06/22 01:01 72 95 05/06/22 00:55 72 96 05/06/22 00:50 74 96 05/06/22 00:46 82 98 05/06/22 00:41 83 97 05/06/22 00:36 75 98 05/06/22 00:31 87 98 05/06/22 00:25 74 97 05/06/22 00:20 79 98 05/06/22 00:15 80 98 05/06/22 00:10 91 H 98 05/06/22 00:07 86 18 137/72 137/72 97 05/06/22 00:05 80 97 05/06/22 00:01 87 97 05/05/22 23:55 79 98 05/05/22 23:51 83 97 05/05/22 23:45 79 97 05/05/22 23:41 80 98 05/05/22 23:35 76 99 05/05/22 23:31 77 98 05/05/22 23:26 76 98 05/05/22 23:21 75 97 05/05/22 23:16 75 97 05/05/22 23:10 93 H 97 05/05/22 23:07 71 138/81 05/05/22 23:05 76 97 05/05/22 23:00 79 97 05/05/22 22:56 82 98 05/05/22 22:50 82 96 05/05/22 22:46 85 97 05/05/22 22:40 73 98 05/05/22 22:35 80 97 05/05/22 22:30 90 96 05/05/22 22:25 84 97 05/05/22 22:21 84 97 05/05/22 22:16 80 98 05/05/22 22:10 81 98 05/05/22 22:07 77 18 139/86 139/86 98 05/05/22 22:05 81 98 05/05/22 22:00 81 98 05/05/22 21:56 78 98 05/05/22 21:50 85 99 05/05/22 21:45 74 100 05/05/22 21:40 89 100 05/05/22 21:35 82 98 05/05/22 21:30 82 97 05/05/22 21:26 89 98 05/05/22 21:20 86 98 05/05/22 21:15 80 96 05/05/22 21:12 96 05/05/22 21:10 97 H 96 05/05/22 21:07 80 152/92 05/05/22 21:05 85 98 05/05/22 21:00 82 96 05/05/22 20:55 81 100 05/05/22 20:50 79 99 05/05/22 20:45 86 99 05/05/22 20:40 87 99 05/05/22 20:35 94 H 100 05/05/22 20:30 95 H 100 05/05/22 20:25 90 100 05/05/22 20:20 98 H 100 05/05/22 20:15 101 H 100 05/05/22 20:10 68 97 05/05/22 20:07 98.9 F 62 18 122/78 122/78 98 05/05/22 20:05 72 98 05/05/22 20:00 70 97 05/05/22 19:55 67 97 05/05/22 19:50 64 97 05/05/22 19:45 67 97 05/05/22 19:40 68 99 05/05/22 19:35 67 99 05/05/22 19:30 69 96 05/05/22 19:25 67 97 05/05/22 19:20 67 98 05/05/22 19:15 67 98 05/05/22 19:10 69 97 05/05/22 19:08 70 83/54 05/05/22 19:05 72 96 05/05/22 19:00 70 98 05/05/22 18:55 69 99 05/05/22 18:50 68 99 05/05/22 18:45 69 96 05/05/22 18:40 73 97 05/05/22 18:35 83 97 05/05/22 18:30 65 97 05/05/22 18:25 77 97 05/05/22 18:20 83 97 05/05/22 18:15 89 98 05/05/22 18:12 89 92 05/05/22 18:10 70 98 05/05/22 18:07 69 122/72 05/05/22 18:05 65 97 05/05/22 18:00 64 98 05/05/22 17:55 68 98 05/05/22 17:50 64 98 05/05/22 17:45 69 99 05/05/22 17:42 87 84 05/05/22 17:40 69 98 05/05/22 17:35 66 99 05/05/22 17:30 66 100 05/05/22 17:25 64 97 05/05/22 17:20 65 97 05/05/22 17:15 67 97 05/05/22 17:10 65 97 05/05/22 17:07 62 118/75 05/05/22 17:05 61 97 05/05/22 17:00 63 97 05/05/22 16:55 65 97 05/05/22 16:50 63 98 05/05/22 16:45 69 98 05/05/22 16:40 64 98 05/05/22 16:35 64 97 05/05/22 16:30 61 96 05/05/22 16:25 67 96 05/05/22 16:20 67 97 05/05/22 16:15 69 99 05/05/22 16:10 66 100 05/05/22 16:08 69 81 L 05/05/22 16:07 63 141/81 05/05/22 16:05 65 100 05/05/22 16:00 68 98 05/05/22 15:58 72 90 05/05/22 15:55 68 95 05/05/22 15:53 76 91 05/05/22 15:50 65 98 05/05/22 15:45 61 99 05/05/22 15:40 74 98 05/05/22 15:35 68 99 05/05/22 15:30 66 98 05/05/22 15:25 66 100 05/05/22 15:20 97.8 F 64 18 118/67 96 05/05/22 15:15 60 96 05/05/22 15:10 61 98 05/05/22 15:07 57 L 118/67 05/05/22 15:05 60 96 05/05/22 15:00 63 96 05/05/22 14:55 64 94 05/05/22 14:50 65 95 05/05/22 14:45 65 95 05/05/22 14:40 62 95 05/05/22 14:35 63 96 07/15/22 14:30 65 96 05/05/22 14:25 64 96 05/05/22 14:20 61 96 05/05/22 14:15 63 97 05/05/22 14:10 61 97 05/05/22 14:07 61 117/61 05/05/22 14:05 61 96 05/05/22 14:00 64 97 05/05/22 13:55 61 97 05/05/22 13:50 63 96 05/05/22 13:45 63 96 05/05/22 13:40 60 96 05/05/22 13:35 58 L 97 05/05/22 13:30 58 L 97 05/05/22 13:25 59 L 96 05/05/22 13:20 66 96 05/05/22 13:15 72 97 05/05/22 13:10 63 96 05/05/22 13:05 74 96 05/05/22 13:00 61 97 05/05/22 12:55 74 97 05/05/22 12:50 63 107/60 95 05/05/22 12:45 63 96 05/05/22 12:40 67 96 05/05/22 12:35 63 96 05/05/22 12:30 64 96 05/05/22 12:25 64 96 05/05/22 12:20 63 110/62 97 05/05/22 12:15 62 96 05/05/22 12:10 63 98 05/05/22 12:05 66 96 05/05/22 12:00 64 96 05/05/22 11:55 68 96 05/05/22 11:50 67 114/68 98 05/05/22 11:45 67 99 05/05/22 11:40 72 99 05/05/22 11:35 71 99 05/05/22 11:30 73 97 05/05/22 11:27 76 92 05/05/22 11:25 71 94 05/05/22 11:20 73 109/72 96 05/05/22 11:15 70 96 05/05/22 11:10 71 96 05/05/22 11:05 72 96 05/05/22 11:00 72 96 05/05/22 10:55 72 95 05/05/22 10:50 74 110/62 95 05/05/22 10:45 74 96 07/15/22 10:40 71 94 05/05/22 10:35 71 94 05/05/22 10:30 68 94 05/05/22 10:25 67 95 05/05/22 10:20 68 111/62 95 05/05/22 10:15 68 95 05/05/22 10:10 67 95 05/05/22 10:05 68 96 05/05/22 10:00 75 97 05/05/22 09:55 71 97 05/05/22 09:50 69 121/71 96 05/05/22 09:45 63 96 05/05/22 09:40 63 96 05/05/22 09:35 63 95 05/05/22 09:30 63 96 05/05/22 09:25 60 96 05/05/22 09:20 66 99 05/05/22 09:15 65 95 05/05/22 09:10 65 95 05/05/22 09:07 68 122/73 100 05/05/22 09:05 64 95 05/05/22 09:00 76 100 05/05/22 08:55 80 98 05/05/22 08:52 67 127/73 05/05/22 08:50 65 98 05/05/22 08:45 66 98 05/05/22 08:40 75 97 05/05/22 08:37 69 136/63 05/05/22 08:35 70 95 05/05/22 08:30 66 100 05/05/22 08:27 77 90 05/05/22 08:24 69 99 05/05/22 08:22 60 132/79 05/05/22 08:19 59 L 98 05/05/22 08:14 60 96 05/05/22 08:09 57 L 96 05/05/22 08:04 60 100 05/05/22 08:02 59 L 139/80 05/05/22 08:01 54 L 143/82 05/05/22 08:00 98.3 F 05/05/22 07:59 64 99 05/05/22 07:54 57 L 96 05/05/22 07:50 97.3 F L 05/05/22 07:49 56 L 99 05/05/22 07:44 51 L 100 05/05/22 07:42 53 L 148/75 05/05/22 07:39 54 L 100 05/05/22 07:38 51 L 166/83 05/05/22 07:34 54 L 100 05/05/22 07:32 57 L 135/103 05/05/22 07:29 53 L 174/101 100 05/05/22 07:24 59 L 100 Intake and Output 05/05/22 05/06/22 05/06/22 22:59 06:59 14:59 Output Total 3340 1700 Balance -3340 -1700 Output: Urine 3340 1700 Indwelling Catheter 3340 1700 Other: Total, Output Amount 580 700 - Exam Breasts: Present: deferred Cardiovascular: Present: Regular rate, Normal S1, Normal S2 Lungs: Present: Clear to auscultation, Normal air movement Abdomen: Present: normal appearance, soft, normal bowel sounds Uterus: Present: normal, firm Extremities: Present: normal - Labs Labs: Abnormal lab results 05/05/22 05/05/22 05/05/22 Range/Units 07:50 07:50 08:00 Plt Count 86 L (140-440) K/mm3 Lymph % (Auto) 8.2 L (13.4-35.0) % Lymph # (Auto) 0.8 L (1.2-5.4) K/mm3 Seg Neutrophils % 86.4 H (40.0-70.0) % Seg Neutrophils # 8.6 H (1.8-7.7) K/mm3 ABG Base Excess -3.4 L (-2.0-3.0) mmol/L Sodium 136 L (137-145) mmol/L Carbon Dioxide 21 L (22-30) mmol/L BUN 5 L (7-17) mg/dL Creatinine 0.5 L (0.6-1.2) mg/dL Glucose 114 H (65-100) mg/dL Magnesium (1.7-2.3) mg/dL ALT 75 H (7-56) units/L Alkaline Phosphatase 163 H (35-129) units/L Lactate Dehydrogenase 230 H (91-180) units/L Albumin 3.4 L (3.9-5) g/dL Urine Creatinine (0.1-20.0) mg/dL Urine Total Protein (5-11.8) mg/dL 05/05/22 05/05/22 05/05/22 Range/Units 08:05 12:57 18:29 Plt Count (140-440) K/mm3 Lymph % (Auto) (13.4-35.0) % Lymph # (Auto) (1.2-5.4) K/mm3 Seg Neutrophils % (40.0-70.0) % Seg Neutrophils # (1.8-7.7) K/mm3 ABG Base Excess (-2.0-3.0) mmol/L Sodium (137-145) mmol/L Carbon Dioxide (22-30) mmol/L BUN (7-17) mg/dL Creatinine (0.6-1.2) mg/dL Glucose (65-100) mg/dL Magnesium 3.80 H 4.30 H (1.7-2.3) mg/dL ALT (7-56) units/L Alkaline Phosphatase (35-129) units/L Lactate Dehydrogenase (91-180) units/L Albumin (3.9-5) g/dL Urine Creatinine 83.0 H (0.1-20.0) mg/dL Urine Total Protein 16 H (5-11.8) mg/dL
[2022-05-06 08:22] LABS: Hematocrit 39.6 % (30.3-42.9); Hemoglobin 13.3 gm/dl (10.1-14.3)
[2022-05-06] MEDS ORDERED: PROMETHAZINE 25 MG TAB PO PRN (08:38)
[2022-05-06] MEDS ORDERED: ONDANSETRON 4 MG/2 ML INJ IV PRN (08:38)
[2022-05-06] MEDS ORDERED: PROMETHAZINE 25 MG RECT SUPP PR PRN (08:38)
[2022-05-06] MEDS ORDERED: LANOLIN/ZINC/DIMETHICONE (LANSINOH) 7 GM TP PRN (08:38)
[2022-05-06] MEDS ORDERED: diphenhydrAMINE 25 MG CAP PO PRN (09:00)
[2022-05-06] MEDS ORDERED: WITCH HAZEL/ GLYCERIN PAD TP PRN (09:00)
[2022-05-06] MEDS: predniSONE 10 MG TAB PO SCH (10:28)
[2022-05-06] MEDS ORDERED: MEASLES, MUMPS & RUBELLA 12,500 UNIT/0.5 ML VACCINE SUB-Q ONE (11:30)
[2022-05-06] MEDS ORDERED: TETANUS,DIPH,PERTUSS(ACELL) VACCINE 0.5 ML SYRINGE IM ONE (11:30)
--- NOTE | 2022-05-06 14:18 | Post Anesthesia Evaluation ---
- Post Anesthesia Evaluation Patient Participated: Yes Airway Patent: Yes Stable Respiratory Function: Yes Nausea/Vomiting: No Temp > 96.8F: Yes Pain Manageable: Yes Adequeate Hydration: Yes Anesthesia Complications: No Block Receding Appropriately: Yes Patient on Ventilator: No
[2022-05-06 21:28] LABS: Hematocrit 34.9 % (30.3-42.9); Hemoglobin 11.9 gm/dl (10.1-14.3)
[2022-05-06] MEDS ORDERED: MAGNESIUM HYDROXIDE (MOM) ORAL LIQD UDC PO PRN (22:00)
[2022-05-07] MEDS: IBUPROFEN 800 MG TAB PO SCH ×2 (03:10→10:18)
[2022-05-07] MEDS: predniSONE 10 MG TAB PO SCH (10:18)
[2022-05-07] MEDS: DOCUSATE SODIUM 100 MG CAP PO SCH (10:18)
--- NOTE | 2022-05-07 12:13 | Discharge Summary ---
Providers - Providers Date of Admission: 05/04/22 18:47 Date of discharge: 05/07/22 Attending physician: STANFORD RANGEL 05/05/22 10:09 Consult to Glue Spreader [CONS] Routine Reason For Exam: assistance with , SNS Primary care physician: JUSTICE POOLE Hospitalization Reason for admission: induction of labor Delivery: complications: other (possible seizure like activity) Discharge diagnosis: IUP at term delivered [place] baby: female Condition at discharge: Good Disposition: 01 HOME / SELF CARE / HOMELESS Plan - Discharge Medications Prescriptions: Ibuprofen [Motrin 800 MG tab] 800 mg PO Q6H #40 tablet - Provider Discharge Summary Activity: routine, no sex for 6 weeks, no heavy lifting 4 weeks, no strenuous exercise Diet: routine Instructions: routine Additional instructions: [] Smoking cessation referral if applicable(refer to patient education folder for contact #) [] Refer to [facility] Booklet Call your doctor immediately for: * Fever > 100.5 * Heavy vaginal bleeding ( >1 pad per hour) * Severe persistent headache * Shortness of breath * Reddened, hot, painful area to leg or breast * Drainage or odor from incision. * Keep incision clean and dry at all times and follow doctor's instructions regarding bathing/showering - Follow up plan Follow up: JUSTICE POOLE MD [Primary Care Provider] - 14 Days
--- NOTE | 2022-05-07 15:10 | Electrocardiograph Report ---
[facility] Test Date: 2022-05-05 Test Time: 07:43:46 Pat Name: JADE OSORIO Department: Room: 2134 Gender: F Switcher: GONZALES : 1985 Requested By: STANFORD RANGEL Order Number: [id number] Reading MD: Leanne Osorio Measurements Intervals [place] Rate: 51 P: 23 [place]: 142 QRS: 38 QRSD: 85 T: 40 QT: 442 QTc: 408 Interpretive Statements Sinus bradycardia No previous ECG available for comparison Electronically Signed On 05-07-2022 15:10:05 EDT by Leanne Osorio
[2022-05-07 16:06] VITALS: BP 133/83
== END 2022-05-07 15:17 | disposition home or self-care (01) | DRG 775 ==
LOC: TRG 15:01 → LD 15:04 → TRG 18:47 → LD 18:47 → OB 05-06 08:15
PROVIDERS: ADMIT Obstetrics & Gynecology; ATTEND Obstetrics & Gynecology
PROC: 10E0XZZ Delivery of Products of Conception, External Approach (ICD-10-PCS; principal; 2022-05-05)
PROC: 0KQM0ZZ Repair Perineum Muscle, Open Approach (ICD-10-PCS; 2022-05-05)
PROC: 3E033VJ Introduction of Other Hormone into Peripheral Vein, Percutaneous Approach (ICD-10-PCS; 2022-05-05)
PROC: 3E0R3BZ Introduction of Anesthetic Agent into Spinal Canal, Percutaneous Approach (ICD-10-PCS; 2022-05-05)
PROC: 00HU33Z Insertion of Infusion Device into Spinal Canal, Percutaneous Approach (ICD-10-PCS; 2022-05-05)
PROC: 3E0234Z Introduction of Serum, Toxoid and Vaccine into Muscle, Percutaneous Approach (ICD-10-PCS; 2022-05-06)
DX: O24.429 Gestational diabetes mellitus in childbirth, unspecified control (principal); O99.02 Anemia complicating childbirth; Z20.822 Contact with and (suspected) exposure to COVID-19; Z23 Encounter for immunization; Z37.0 Single live birth; Z3A.39 39 weeks gestation of pregnancy; O99.214 Obesity complicating childbirth; E66.01 Morbid (severe) obesity due to excess calories; O36.63X0 Maternal care for excessive fetal growth, third trimester, not applicable or unspecified; O99.62 Diseases of the digestive system complicating childbirth; K64.9 Unspecified hemorrhoids; K59.00 Constipation, unspecified; O77.0 Labor and delivery complicated by meconium in amniotic fluid; O76 Abnormality in fetal heart rate and rhythm complicating labor and delivery; O70.1 Second degree perineal laceration during delivery; O75.89 Other specified complications of labor and delivery
CPT/HCPCS: 36415; 36600; 71045; 80053; 81001; 82570; 82803; 82962; 83615; 83735; 84156; 85014; 85018; 85025; 85027; 85610; 85730; 86592; 86850; 86900; 86901; 93005; 96360; 96361; 96365; 96366; 96367; 96372; 96374; 96375; G0378; J0595; J2210; J2405; J2590; J3010; J3475; J7120; J7512; Q0169; U0003